=== PATIENT | female | born 1970 | race Caucasian/White ===

== ENCOUNTER → 2018-09-09 09:01 | Outpatient (CLI) | payer OTHER, SELFPAY ==
[2018-07-18 14:48] VITALS: BMI 30.4
--- NOTE | 2018-08-16 00:13 | HP.PCM_ITS ---
History and Physical Date of Admission: 08/16/18 HISTORY OF PRESENT ILLNESS 47 year old woman presents with complaints of painful nipple scar contour deformity bilateral breasts from previous multiple breast abscesses. She states the symptomatology has worsened over the last several months. She had a mammogram in mid 2018 and according to her, it was ok. Will obtain a copy of that. She states it was done in [place]. She denies any fever. She denies any trauma. She denies nipple discharge. Some of her concerns are the asymmetry between the breasts because of the amount of tissue that was debrided at the time of these abscess drainage procedures and the medial inward deformity of her left nipple. She presents at this time for further evaluation and treatment. PAST MEDICAL HISTORY Arthritis Breast lump in female Frequent headaches GERD (gastroesophageal reflux disease) Hormone deficiency Pituitary disorder Rheumatoid arthritis Thyroid disease Tumors PAST SURGICAL HISTORY appendectomy incision and drainage tubal ligation ALLERGIES hydromorphone [From Dilaudid] adhesive tape MEDICATIONS bupropion HCl XL 300 mg 24 hr tablet, extended release 300 mg PO QAM 07/04/18 [History Confirmed 07/04/18] cabergoline 0.5 mg tablet 0.25 mg PO 2XW tab 07/04/18 [History Confirmed 07/04/18] levothyroxine 75 mcg tablet 75 mcg PO DAILY 07/04/18 [History Confirmed 07/04/18] pantoprazole 40 mg tablet,delayed release 40 mg PO DAILY 07/04/18 [History Confirmed 07/04/18] FAMILY HISTORY Mother - Anxiety, Arthritis, Hypertension, Anemia, Bleeding disorder Father - Anxiety, Hypertension, Respiratory disease Brother - Anxiety, Psychiatric care, Suicide attempt Aunt - Breast cancer, Cancer Uncle - Cancer, Heart disease, Lung cancer, Melanoma Grandmother - Colon cancer, Psychiatric care, Thyroid disorder Grandfather - Respiratory disease SOCIAL HISTORY Smoking Status: Current every day smoker alcohol intake: current substance use type: does not use REVIEW OF SYSTEMS General - Denies fever, fatigue, and weight loss. Eyes - Denies cataracts and glaucoma. ENT - Denies nasal congestion and sore throat. Endocrine - Denies excessive thirst and urination. Has family history of breast cancer. Skin - Denies suspicious lesions and skin cancer. Has painful nipple scar contour deformity bilateral breasts from previous multiple breast abscesses. Musculoskeletal - Denies joint pain, joint stiffness, weakness of muscles and joints, and back pain. Has rheumatoid arthritis. Neuro - Denies headaches. Cardiovascular - Denies chest pain, fatigue, and shortness of breath with exertion. Psych - Denies anxiety and depression. Respiratory - Denies chronic cough and shortness of breath. Patient is a smoker. Gastrointestinal - Denies nausea, vomiting, diarrhea, and constipation. Hematologic - Denies abnormal bruising and bleeding. Genitourinary - Denies hematuria and urinary frequency. PHYSICAL EXAMINATION General - Alert and Oriented. Her bra size is a C cup. HEENT - PERRL. EOMI. Throat is clear. Neck - Supple and nontender. No cervical adenopathy. Breasts - No breast masses palpable. Right breast is larger than the left with asymmetry. No axillary adenopathy. On the right lateral nipple is a 4 cm scar contour deformity with some indentation. No ulceration. Some tenderness to palpation. No clinical evidence of infection. On the left medial nipple is a 4 cm scar contour deformity with some indentation and much greater deformity with medial inward deviation of the nipple. There is also a 2 cm widened scar in the medial aspect of the periareolar area adjacent to the nipple scar. No ulceration. Tenderness to palpation. No clinical e vidence of infection. Breast diameter is 14 cm bilaterally. Distance from the midclavicular line on the right to the nipple is 25 cm and from the nipple to the inframammary fold is 6 cm. Distance from the midclavicular line on the left to the nipple is 24 cm and from the nipple to the inframammary fold is 5 cm. Diameter of the nipple areolar complexes bilaterally is 6 cm. There is Stage II ptosis bilaterally where the nipple is located below the inframammary fold. Lungs - Clear to auscultation. Heart - Regular rate and rhythm. Abdomen - Soft and nondistended. Extremities - FROM. No axillary adenopathy. Radial pulses are palpable. Neuro - CN II-XII grossly intact. Psych - Normal mood and affect. ASSESSMENT 1. Painful nipple scar contour deformity bilateral breasts from previous multiple breast abscesses. 2. Left breast asymmetry. 3. Bilateral breast ptosis. 4. Family history of breast cancer. 5. Smoker. PLAN Will review the mammogram from [place] that was done in 2018. Depending on when it was done, another mammogram may be needed before surgery. Recommend surgical preparation of her painful nipple scar contour deformity bilateral breasts with excisional debridement followed by complex secondary wound closure. Will send tissue to Pathology for analysis to rule out carcinoma. Will also send tissue to Microbiology for culture. A positive culture will necessitate antibiotic therapy. I anticipate the need for a drain postoperatively for several days. Surgery will be done on an outpatient basis under general anesthesia. Patient was informed of the risks and complications of the procedure including alternatives to surgery. These were discussed with the patient personally. Patient voices understanding and wishes to proceed. Some of the risks and complications were included in a form from the [employer]. With the patient's degree of breast ptosis and combined with her history of infections that have led to multiple procedures that left her with asymmetry and the nipple deformity, she is a candidate for revision breast reconstruction with a mastopexy. Will send a letter to her insurance carrier for medical approval. If it is not approved, then the patient is aware that she would be financially responsible for this procedure if she decides to pursue the revision breast reconstruction with mastopexy. Encouraged patient to stop smoking as it may have deleterious effects on wound healing.
== END ==
PROVIDERS: Family Provider Family Medicine; PCP Family Medicine; Referring Provider Surgery; Visit Provider Surgery
DX: Z53.9 Procedure and treatment not carried out, unspecified reason (principal); S21.001S Unspecified open wound of right breast, sequela; S21.002S Unspecified open wound of left breast, sequela; X58.XXXS Exposure to other specified factors, sequela; N64.89 Other specified disorders of breast; F17.200 Nicotine dependence, unspecified, uncomplicated; Z87.2 Personal history of diseases of the skin and subcutaneous tissue; Z98.890 Other specified postprocedural states; Z80.3 Family history of malignant neoplasm of breast

== ENCOUNTER 2021-06-28 10:26 | Outpatient (CLI) | payer OTHER, SELFPAY ==
[2021-06-28 11:45] LABS: EXAGEN MAILED SPECIMEN
[2021-06-28 12:35] LABS: Erythrocyte Sedimentation Rate 41 mm/hr (0-30)
[2021-06-28 12:37] LABS: Prothrombin Time (Protime)PT. 12.4 SECONDS (11.7-14.9)
[2021-06-28 12:38] LABS: Absolute Lymphocyte Count 1.74 X10^3/uL (0.83-4.51); Absolute Neutrophil Count 1.5 X10^3/uL (2.0-7.7); Basophil# 0.01 X10^3/uL; Basophil% 0.3 % (0-1); Eosinophil# 0.03 X10^3/uL; Eosinophils% 0.8 % (0-5); Hematocrit 43.6 % (37-47); Hemoglobin 14.8 g/dL (12.0-15.0); Lymphocyte # 1.74 X10^3/ul (0.83-4.51); Lymphocyte % 44.6 % (19-41); Mean Corp Hgb Conc 33.9 g/dL (32-36); Mean Corpuscular Hgb 30.3 pg (27.0-32.0); Mean Corpuscular Volume 89.3 fL (81-99); Mean Platelet Vol. 10.8 fl (6.2-12.0); Monocyte# 0.66 X10^3/uL; Monocyte% 16.9 % (0-10); NRBC Flagged by Analyzer 0 % (0-5); Neutrophil # 1.45 X10^3/uL (2.7-7.7); Neutrophil % 37.1 % (47-70); Partial Thromboplast Time 34.3 Seconds (24.1-36.2); Platelet Count 235 K/mm3 (150-450); RBC Distribution Width SD 42.9 fl (35.1-43.9); Red Blood Count 4.88 M/mm3 (4.2-5.4); White Blood Count 3.9 K/mm3 (4.4-11.0)
[2021-06-28 12:39] LABS: Color, Urine Yellow (Yellow); Glucose, Dipstick Normal (Normal); Ketone-Dipstick Negative (Negative); Leukocyte Esterase-Dipstick Negative /ul (Negative); Nitrite-Dipstick Negative (Negative); Occult Blood-Urine Negative /ul (Negative); Protein-Dipstick Negative (Negative); Urine Bilirubin Dipstick Negative (Negative); Urine Clarity Sl. Cloudy (Clear); Urine Urobilinogen Normal (Normal)
[2021-06-28 12:53] LABS: Protein, Urine (Random) < 6.0 mg/dL (<11.9)
[2021-06-28 12:54] LABS: AST(SGOT) 21 U/L (15-37); Alanine Aminotransfer ALT/SGPT 35 U/L (13-56); Alkaline Phosphatase 110 U/L (45-117); Anion Gap 6 (5-15); BUN 7 mg/dL (7-18); BUN/Creat Ratio 7.9 RATIO (10-20); Calcium,Total 9.5 mg/dL (8.5-10.1); Chloride 107 mmol/L (98-107); Creatinine, Serum 0.88 mg/dL (0.55-1.02); EST Glomerular Filtration Rate 73 mL/min (>60); Est Glom Filt Rate - Afr Amer 88 mL/min (>60); Globulin 4.2 g/dL (2.2-4.2); Glucose 91 mg/dL (74-106); Phosphorus 3.7 mg/dL (2.5-4.9); Potassium 4.1 mmol/L (3.5-5.1); Protein, Total 8.2 g/dL (6.4-8.2); Sodium Level 137 mmol/L (136-145)
== END 2021-06-28 23:59 | disposition home or self-care (01) ==
LOC: MTLAB 10:34
PROVIDERS: PCP Internal Medicine; Referring Provider Internal Medicine Rheumatology; Visit Provider Internal Medicine Rheumatology
DX: M06.4 Inflammatory polyarthropathy (principal); M79.7 Fibromyalgia
CPT/HCPCS: 36415; 80053; 81002; 82570; 84100; 84156; 85025; 85610; 85652; 85730; 86140

== ENCOUNTER → 2023-05-24 | Outpatient (CLI) | payer OTHER, SELFPAY ==
--- OUTSIDE RECORDS SUMMARY | 2023-05-24 11:37 | XMS RPT_ITS | CCD ---
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 Procedures Date Procedure Procedure Detail Performing Clinician Start: 03-08-2022 End: 03-08-2022 Visual field xm uni/bi w/interp extended exam Merlin Basilio MD Work Phone: Start: 11-24-2020 Colonoscopy Roland trotter MD Work Phone: Start: 10-27-2020 Brncdilat rspse spmt ry pre&post-brncdilat admn Darleen Naylor 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 Work Phone: Start: 10-14-2020 Radiologic exam ches t 2 views Darleen Naylor 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 Work Phone: Start: 05-06-2019 MG Breast screening Yoan Russell Start: 01-28-2018 Microscopic observat ion [Identifier] in Cervix by Cyto stain Darleen Naylor Start: 12-11-2017 Mammography Darleen Spring Start: 07-30-2017 Microscopic observat ion [Identifier] in Cervix by Cyto stain Ritesh Osei Start: 07-03-2016 Mammography Merlin carney MD Work Phone: Appendectomy Ritesh sOei Colposcopy Ritesh Osei Dilation and curettage Ritesh Osei Ligation of fallopian tube J ohberlin Osei Plan of Treatment Date Care Activity Detail Author Start: 2037 Pneumococcal Vaccine: Ped or At-Risk (2 of 2 - PPSV23) Pneumococcal Vaccine: Ped or At-Risk (2 of 2 - PPSV23) [facility] Start: 11-24-2030 Screening for malignant neoplasm of colon [facility] Start: 03-14-2024 History and physical examination, annual for health maintenance Wellness Visit [facility] Start: 08-30-2023 End: 08-30-2023 Patient encounter procedure 08/30/2023 10:40 AM EDT Office Visit [facility] [address] [place] [address] Tania Judge MD [address] [address] [facility] Start: 07-13-2023 End: 07-13-2023 Patient encounter procedure 07/13/2023 8:15 AM EDT Office Visit [facility] [place] [address] [place] [id number] Dennis Serrano CNP [address] [place] [address] [facility] [place] Start: 05-21-2023 Administration of herpes zoster vaccine Zoster Vaccines (2 of 2) [facility] Start: 03-26-2023 End: 03-26-2023 Clinical Support 03/26/2023 1:30 PM EST Clinical Support [facility] [address] [place] [address] [facility] Start: 01-21-2023 Tetanus vaccination [facility] Start: 01-21-2023 Urine microalbumin profile DTAP,TDAP,TD (2 - Td or Tdap) [facility] Start: 12-29-2022 COVID-19 Vaccine ( season) COVID-19 Vaccine () [facility] Start: 2022 Administration of herpes zoster vaccine Zoster Vaccines (1 of 2) [facility] Start: 2022 Screening for malignant neoplasm of colon Flexible sigmoidoscopy [facility] Start: 10-06-2022 End: 10-06-2022 Patient encounter procedure 10/06/2022 Office Visit Endocrinology Marge Arndt MD [address] [place] [address] [facility] [place] Start: 09-18-2022 End: 04-08-2023 Prolactin [Mass/volume] in Serum or Plasma Prolactin Lab Routine Hyperprolactinemia (HCC) Expected: 09/18/2022 (Approximate), Expires: 04/08/2023 [facility] Immunizations Immunization Date Immunization Notes Care Provider Fa cility 03-26-2023 Pneumococcal Conjuga te 20-Valent (Prevnar 20) Ginna Doll [facility] 03-26-2023 zoster vaccine recombinant Ginna rodrigues [facility] 03-26-2023 varicella-zoster gE, diluent + powder, (SHINGRIX KIT) 50 mcg/0.5 mL injection Ginna Doll [facility] 03-26-2023 pneumococcal conj. 2 0-valent (PREVNAR 20) 0.5 mL vaccine Ginna [facility] 03-14-2023 influenza, injectabl e, quadrivalent, preservative free Tania Judge MD Work Phone: [facility] 03-14-2023 flu vacc [id number] 6 mos up,PF, (FLUZONE QUAD/FLULAVAL QUAD/FLUARIX QUAD) 60 mcg (15 mcg x 4)/0.5 mL Syrg syringe Tania Judge MD Work Phone: [facility] 01-19-2022 Seasonal, quadrivale nt, recombinant, injectable influenza vaccine, preservative free Tania Judge MD Work Phone: [facility] 01-19-2022 flu vac qv 2021,18yr up,rcm-PF (FLUBLOK QUAD) syringe Tania Judge MD Work Phone: [facility] 03-28-2021 Seasonal, quadrivale nt, recombinant, injectable influenza vaccine, preservative free Tania Judge MD Work Phone: [facility] 03-28-2021 flu vac qv 2020,18yr up,rc,PF, (FLUBLOK QUAD) syringe Tania Judge MD Work Phone: [facility] 01-17-2017 influenza, injectabl e, quadrivalent, preservative free [facility] 08-31-2016 measles, mumps and r ubella virus vaccine [facility] 08-04-2015 pneumococcal polysac charide vaccine, 23 valent [facility] 01-21-2013 influenza virus vacc ine, unspecified formulation [facility] 01-21-2013 tetanus toxoid, redu ernie diphtheria toxoid, and acellular pertussis vaccine, adsorbed [facility] Payers Date Payer Category Payer Unknown [id number] 2018 Unknown xxxxxxxxx [id number] 2017 Private Health Insurance 2017 Unknown [facility] xxxxxxxxxxx 2017-Present [place] xxxxxxxxxxx [id number] 2017 Unknown [facility] UMR RODRIGUEZ CE PLUS [id number] 2017-Present [phone] [address] [address] [place] [address] [id number] 2017 Unknown [id number] 1972 Unknown [id number] 1972 Unknown [id number] 1972 Unknown [id number] 1972 Unknown [id number] 1972 Unknown [id number] 1972 Unknown [id number] 1972 Unknown [id number] 1972 Unknown [id number] 1972 Unknown [id number] 1972 Unknown [id number] 1972 Unknown [id number] Private Health Insurance [id number] Social History Date Type Detail Facility Start: 07-30-2017 End: 01-19-2022 Tobacco smoking status NHIS Current every day smoker [facility] Start: 04-30-1985 History of tobacco use Cigarette Smo ker [facility] Start: 07-30-2017 End: 04-18-2022 Cigarettes smoked current (pack per day) - Reported [facility] Start: 1970 Sex Assigned At Not on file [facility] Start: 10-10-2016 End: 01-19-2022 Tobacco Comment +1 pack a day [facility] Start: 10-10-2016 Alcohol Comment 2-6 glasses a week [facility] Start: 10-14-2020 End: 01-19-2022 Tobacco use and exposure Never used [facility] Start: 10-14-2020 End: 03-14-2023 Alcohol intake Current drinker of alcohol (finding) [facility] Start: 06-17-2021 End: 04-07-2022 Exposure to SARS-CoV-2 (event) Not sure [facility] Start: 11-09-2020 Alcohol Comment 1- 2 galsses a month [facility] Start: 12-28-2020 History SDOH Alcohol Comment occasio nal [facility] Start: 02-14-2022 End: 02-24-2022 Exposure to SARS-CoV-2 (event) Unable to assess [facility] Start: 04-18-2022 End: 03-14-2023 Tobacco use panel [facility] Adult Depression Scr eening Assessment 8 [facility] Start: 02-07-2018 Gender identity Identifies as female gender (finding) [facility] Start: 02-07-2018 Sexual orientation Heterosexual (fin manish) [facility] Medical Equipment Procedure Code Equipment Code Equipment Origin al Text Equipment Identifier Dates Gonzalez [employer]aps[employer] [id number] Start: 11-24-2020 Goals Date Patient Goal Desired Activity /State Personal health goal Functional Status Date Assessment Result Facility NEGATED: Highlighted row Functional performance Functional status health issues are not documented Disease [employer] Work Phone: Mental Status Date Assessment Result Facility NEGATED: Highlighted row Cognitive function [Interpretation] Cognitive status health issues are not documented [facility] [email or web address] Work Phone: Clinical Notes 08-04-2015 to 05-09-2023 Telephone Encounter - Alcira Brantley RN - 05/09/2023 8:33 AM ESTTelephone Encounter - Alcira Brantley RN - 05/09/2023 8:33 AM ESTTelephone Encounter - Alcira Brantley RN - 05/08/2023 2:44 PM EST Note Date & Type Note Facility 05-09-2023 Telephone encounter Note the Shelf MESSAGE SENT TO PT. [facility] 05-09-2023 Miscellaneous Notes the Shelf MESSAGE SENT TO PT. PER PT: predniSONE (DELTASONE) 20 MG tablet 14 tablet 0 03/14/2023 03/21/2023 Sig - Route: Take 2 (two) tablets (40 mg total) by mouth daily for 7 days . - Oral Pt stated pcp will call in prednisone when she has a flare up on her hands. Pt stated she is having a flare up this week and would like it called in, and if unable to refill please call pt back. LAST OV 03/14/23. NEXT OV SCHEDULED FOR 08/30/23. ----- Message from Olesya Arroyo sent at 05/08/2023 2:36 PM EST ----- Regarding: RX refill Contact: Andreina Sesay [phone] MEDICATION REFILL REQUEST: PCP: Tania Judge MD Patient called 05/08/23 and is requesting a medication refill for levothyroxine (SYNTHROID, LEVOTHROID) 75 MCG [id number] [id number]/11/2022 Sig - Route: Take 1 (one) tablet (75 mcg total) by mouth every morning . - Oral predniSONE (DELTASONE) 20 MG [id number] Sig - Route: Take 2 (two) tablets (40 mg total) by mouth daily for 7 days . - Oral Pt stated pcp will call in prednisone when she has a flare up on her hands. Pt stated she is having a flare up this week and would like it called in, and if unable to refill please call pt back. This was confirmed from the current medication list found in the patients chart. Supply Requested: # of days: 90 days Method of receiving: Send to pharmacy Last set of flowsheet rows for OARRS report: OARRS/NARxCHECK Report Received and Assessed: No data found Date controlled substance agreement signed: No data found Date of last drug screen: No data found Functional Assessment: No data found Will this refill be sent to the preferred pharmacy listed below? Yes Preferred pharmacies: [facility] [address] [place] [address] [address] Pt Call Back Number Patient call back message sent to the primary care clinical pool. Olseya Arroyo documented in this encounter [facility] 05-08-2023 Telephone encounter Note PER PT: predniSONE (DELTASONE) 20 MG tablet 14 tablet 0 03/14/2023 03/21/2023 Sig - Route: Take 2 (two) tablets (40 mg total) by mouth daily for 7 days . - Oral Pt stated pcp will call in prednisone when she has a flare up on her hands. Pt stated she is having a flare up this week and would like it called in, and if unable to refill please call pt back. LAST OV 03/14/23. NEXT OV SCHEDULED FOR 08/30/23. [facility] 05-08-2023 Telephone encounter Note ----- Message from Olesya Arroyo sent at 05/08/2023 2:36 PM EST ----- Regarding: RX refill Contact: Andreina Sesay [phone] MEDICATION REFILL REQUEST: PCP: Tania Judge MD Patient called 05/08/23 and is requesting a medication refill for levothyroxine (SYNTHROID, LEVOTHROID) 75 MCG [id number]/11/2022 Sig - Route: Take 1 (one) tablet (75 mcg total) by mouth every morning . - Oral predniSONE (DELTASONE) 20 MG [id number]/ Sig - Route: Take 2 (two) tablets (40 mg total) by mouth daily for 7 days . - Oral Pt stated pcp will call in prednisone when she has a flare up on her hands. Pt stated she is having a flare up this week and would like it called in, and if unable to refill please call pt back. This was confirmed from the current medication list found in the patients chart. Supply Requested: # of days: 90 days Method of receiving: Send to pharmacy Last set of flowsheet rows for OARRS report: OARRS/NARxCHECK Report Received and Assessed: No data found Date controlled substance agreement signed: No data found Date of last drug screen: No data found Functional Assessment: No data found Will this refill be sent to the preferred pharmacy listed below? Yes Preferred pharmacies: [facility] [address] [place] [address] Pt Call Back Number Patient call back message sent to the primary care clinical pool. Olesya Arroyo [facility] 03-26-2023 History of Present illness Narrative Pt here for Prevnar 20 and Pheumonia vaccines. She got a vaccine in each arm. She tolerated them well. Pt reports that she has an appointment with a hand specialist in [place] on 04/03/23. Pt reports that even after finishing course of Prednisone, her hands are still hurting her. documented in this encounter [facility] 03-14-2023 Evaluation + Plan note Associated Problem(s): Hyperlipidemia LDL goal <100 Has familial history of hypercholesterolemia, will repeat blood work and monitor response, open to start on an anticholesterol medication and has been doing really well with lifestyle changes. We will continue to monitor and calculate her ASCVD risk score with the new numbers. [facility] 03-14-2023 Miscellaneous Notes Associated Problem(s): Hyperlipidemia LDL goal <100 Has familial history of hypercholesterolemia, will repeat blood work and monitor response, open to start on an anticholesterol medication and has been doing really well with lifestyle changes. We will continue to monitor and calculate her ASCVD risk score with the new numbers. Associated Problem(s): Seasonal depression (HCC) Stable on the current regimen with Wellbutrin 450 mg for seasonal changes. Continue to monitor and follow-up in 6 months Associated Problem(s): Healthcare maintenance Up to date on flu, given today Qualifies for another pCV20 for smoking, considering along with Shingrix as a nurse visit in the next time Pap smear will talk to 's office to get it scheduled Up-to-date on colon cancer screening. Mammogram ordered today Follow up on COVID booster next visit Nicotine therapy counseling done documented in this encounter [facility] 03-14-2023 Evaluation + Plan note Associated Problem(s): Seasonal depression (HCC) Stable on the current regimen with Wellbutrin 450 mg for seasonal changes. Continue to monitor and follow-up in 6 months [facility] 03-14-2023 Evaluation + Plan note Associated Problem(s): Healthcare maintenance Up to date on flu, given today Qualifies for another pCV20 for smoking, considering along with Shingrix as a nurse visit in the next time Pap smear will talk to 's office to get it scheduled Up-to-date on colon cancer screening. Mammogram ordered today Follow up on COVID booster next visit Nicotine therapy counseling done [facility] 03-14-2023 History of Present illness Narrative Chief Complaint Patient presents with Annual Exam No pap Flu shot HPI: Patient is a 52 y.o. female with a past medical history of GERD, depression, esophagitis, rheumatoid arthritis and thyroid disease. 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 Juarez hypothyroidism: Currently on levothyroxine at 75 mcg. TFTs checked with endocrine and were within normal limits Pituitary adenoma/ prolactinoma: 2012, hyperprolactinemia , sure enough that she had it in her adolescence. Had two miscarriages. Prolactin has been high last time checked. Currently followed by endocrinology and on cabergoline 0.5 mg tab twice weekly increased from once a week by Dr. Arndt. Rheumatoid arthritis: Has been seen by Rheumatology in [place] . was on methotrexate didn't tolerate it with nuasea , fatgue and cold sores. Small joint pains living on tylenol and ibuprofen on a daily basis, tried Mobic in the past with no relief. For years have been struggling with bilateral hand pain and swelling, throbbing, warm and stiff in the morning and at the end of the day sometimes wakes her up at night. Sleeping with braces. EMG done in the past excluded carpal tunnel. 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 Did have relief with prednisone courses in the past, has tried meloxicam and Voltaren with no relief. Nicotine dependence: Current everyday smoker about a pack per day for the past 32 years, also smokes quite about 3 years ago and switched to the Juul vapes. Now at under 1 PPD. Has tried quitting in the past with no success. Does have patches at home which she uses if she goes to a place that she cannot smoke and it would be effective. Not thinking of quitting at this time. Obesity: Has tried the noom program for weight loss and has been trying to lose weight . Has lost and was able to maintain the weight she lost. Gained some of it back and she is going to go back on Noom. Has been losing weight on Noom. 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 Phil Powers EGD N/A 11/24/2020 Procedure: ESOPHAGOGASTRODUODENOSCOPY WITH BIOPSY AND GONZALEZ CHIP PLACEMENT; Surgeon: René High MD; Location: [facility]; Service: General Surgery ESOPHAGEAL MANOMETRY N/A 11/24/2020 Procedure: ESOPHAGEAL MANOMETRY; Surgeon: René High MD; Location: [facility]; Service: General Surgery TUBAL LIGATION Family History Problem Relation Age of Onset Rheum arthritis Mother Hypertension Mother Emphysema Father COPD Father Hypothyroidism Father Cancer Maternal Grandmother colon Thyroid disease Maternal Grandmother Hypertension Maternal Grandfather Heart disease Paternal Grandfather Heart disease Paternal Uncle Social History Tobacco Use Smoking status: Every Day Packs/day: 1.00 Years: 32.00 Additional pack years: 0.00 Total pack years: 32.00 Types: Cigarettes Smokeless tobacco: Never Tobacco comments: +1 pack a day Vaping Use Vaping Use: Never used Substance Use Topics Alcohol use: Yes Comment: occasional Drug use: No Review of Systems Vitals: 03/14/23 1116 BP: 111/76 BP Location: Right arm Patient Position: Sitting BP Cuff Size: Adult Pulse: 79 Resp: 16 Temp: 97.3 F (36.3 C) TempSrc: Temporal SpO2: 94% Weight: 58.1 kg (128 lb) Height: 5' Estimated body mass index is 25 kg/m as calculated from the following: Height as of this encounter: 5'. Weight as of this encounter: 58.1 kg (128 lb). Physical Exam Constitutional: General: She is not in acute distress. Appearance: She is not ill-appearing. HENT: Head: Normocephalic and atraumatic. Eyes: Extraocular Movements: Extraocular movements intact. Conjunctiva/sclera: Conjunctivae normal. Pupils: Pupils are equal, round, and reactive to light. Cardiovascular: Rate and Rhythm: Normal rate and regular rhythm. Pulses: Normal pulses. Heart sounds: Normal heart sounds. No murmur heard. No gallop. Pulmonary: Effort: Pulmonary effort is normal. Breath sounds: No wheezing, rhonchi or rales. Chest: Chest wall: No tenderness. Abdominal: General: Abdomen is flat. Bowel sounds are normal. There is no distension. Palpations: Abdomen is soft. There is no mass. Tenderness: There is no abdominal tenderness. There is no right CVA tenderness, left CVA tenderness, guarding or rebound. Musculoskeletal: General: Tenderness (Along with swelling in left first CMC joint) present. Normal range of motion. Cervical back: Normal range of motion and neck supple. No rigidity. No muscular tenderness. Right lower leg: No edema. Left lower leg: No edema. Lymphadenopathy: Cervical: No cervical adenopathy. Skin: General: Skin is warm. Findings: No erythema or rash. Neurological: General: No focal deficit present. Mental Status: She is alert and oriented to person, place, and time. Sensory: No sensory deficit. Motor: No weakness. Gait: Gait normal. Psychiatric: Mood and Affect: Mood normal. Behavior: Behavior normal. Thought Content: Thought content normal. Judgment: Judgment normal. OARRS/NARxCHECK Report Received and Assessed: No data found Date controlled substance agreement signed: No data found Date of last drug screen: No data found Functional Assessment: No data found PHQ9: MARY-7 Tobacco Counseling: Ready to quit: Not Answered Counseling given: Not Answered Tobacco comments: +1 pack a day Patient's Medications New Prescriptions PREDNISONE (DELTASONE) 20 MG TABLET Take 2 (two) tablets (40 mg total) by mouth daily for 7 days . Previous Medications ALBUTEROL 90 MCG/ACTUATION INHALER Inhale 2 (two) puffs every 4 (four) hours as needed for wheezing, shortness of breath or cough . BUPROPION (WELLBUTRIN XL) 300 MG 24 HR TABLET Take 1 (one) tablet (300 mg total) by mouth daily Take with 150 mg tablet to total 450 mg daily. . CABERGOLINE (DOSTINEX) 0.5 MG TABLET Take 1 (one) tablet (0.5 mg total) by mouth twice weekly . FLU VACC [id number] 6MOS UP,PF, (FLUZONE QUAD/FLULAVAL QUAD/FLUARIX QUAD) 60 MCG (15 MCG X 4)/0.5 ML SYRG SYRINGE Sign this order in conjunction with the immunization order to satisfy [place] Board of [employer]acy Positive ID requirements for immunization orders. . LEVOTHYROXINE (SYNTHROID, LEVOTHROID) 75 MCG TABLET Take 1 (one) tablet (75 mcg total) by mouth every morning . Modified Medications Modified Medication Previous Medication BUPROPION (WELLBUTRIN XL) 150 MG 24 HR TABLET buPROPion (Wellbutrin XL) 150 MG 24 hr tablet Take 1 (one) tablet (150 mg total) by mouth daily Total 450 mg . Take 1 (one) tablet (150 mg total) by mouth daily Total 450 mg . Discontinued Medications DICLOFENAC SODIUM (VOLTAREN) 75 MG EC TABLET Take 1 (one) tablet (75 mg total) by mouth 2 (two) times a day with meals . FLU VAC QV 2020,18YR UP,RC,PF, (FLUBLOK QUAD) SYRINGE Sign this order in conjunction with the immunization order to satisfy [place] Board of Pharmacy Positive ID requirements for immunization orders. . FLU VAC QV 2021,18YR UP,RCM-PF (FLUBLOK QUAD) SYRINGE Sign this order in conjunction with the immunization order to satisfy [place] Board of Pharmacy Positive ID requirements for immunization orders. . Health Maintenance Due Topic Date Due Low-dose CT Lung Cancer Screen Never done Wellness Visit Never done HIV Screening Never done Pneumococcal Vaccine: Ped or At-Risk (2 - PCV) 08/03/2016 Mammogram 12/11/2018 Pap Smear 01/28/2021 Zoster Vaccines (1 of 2) Never done COVID-19 Vaccine (4 - 2022- season) 2022 Tetanus: Every 10yrs 01/21/2023 Assessment & Plan Problem List Items Addressed This Visit Other Seasonal depression (HCC) Stable on the current regimen with Wellbutrin 450 mg for seasonal changes. Continue to monitor and follow-up in 6 months Relevant Medications buPROPion (Wellbutrin XL) 150 MG 24 hr tablet Hyperlipidemia LDL goal <100 Has familial history of hypercholesterolemia, will repeat blood work and monitor response, open to start on an anticholesterol medication and has been doing really well with lifestyle changes. We will continue to monitor and calculate her ASCVD risk score with the new numbers. Healthcare maintenance Up to date on flu, given today Qualifies for another pCV20 for smoking, considering along with Shingrix as a nurse visit in the next time Pap smear will talk to 's office to get it scheduled Up-to-date on colon cancer screening. Mammogram ordered today Follow up on COVID booster next visit Nicotine therapy counseling done Other Visit Diagnoses Encounter for immunization - Primary Relevant Medications flu vacc [id number] 6mos up,PF, (FLUZONE QUAD/FLULAVAL QUAD/FLUARIX QUAD) 60 mcg (15 mcg x 4)/0.5 mL Syrg syringe Other Relevant Orders Influenza IIV4 6mo or >,Fluzone Quad (Completed) Arthritis of carpometacarpal (CMC) joint of left thumb Relevant Medications predniSONE (DELTASONE) 20 MG tablet Other Relevant Orders Ambulatory referral to Hand Surgery Encounter for screening for malignant neoplasm of breast, unspecified screening modality Relevant Orders CT Lung Cancer Screening Screening for malignant neoplasm of respiratory organ Relevant Orders Mammography Screening Tito Bilateral Hyperlipidemia, unspecified hyperlipidemia type Relevant Orders Lipid Panel Lipoprotein A (LPA) Return in about 6 months (around 09/12/2023) for Follow Up, nurse visit for PCV20 and shingrix . TANIA JUDGE MD [facility] [address] [facility] [address] Dept: [phone] 04/18/2022 8:14 AM Depression Screening Little interest or pleasure in doing things 1 Feeling down, depressed, or hopeless 1 PHQ-2 Total Score 2 Trouble falling or staying asleep, or sleeping too much 1 Feeling tired or having little energy 1 Poor appetite or overeating 1 Feeling bad about yourself - or that you are a failure or have let yourself or your family down 1 Trouble concentrating on things, such as reading the newspaper or watching television 2 Moving or speaking so slowly that other people could have noticed. Or the opposite - being so fidgety or restless that you have been moving around a lot more than usual 0 Thoughts that you would be better off , or of hurting yourself in some way 0 PHQ-9 Total Score 8 If you checked off any problems, how difficult have these problems made it for you to do your work, take care of things at home, or get along with other people? Somewhat difficult documented in this encounter [facility] 04-07-2022 History of Present illness Narrative Images from the original note were not included. Patient ID: Andreina Sesay is a 51 y.o. female Subjective: Patient is a 50-year-old female returns for further treatment of prolactinoma. She states that she was diagnosed with her prolactinoma in 2012. She states that she developed an abscess in her left breast in 2011; had surgical removal of the abscess. She developed a second abscess in her right breast in 2012 and at that time had an evaluation of her hormone levels. Her prolactin level was elevated in the 400 range. She was started on cabergoline at that time and has continued to take cabergoline 0.25 mg twice weekly. At the time of diagnosis, she did have intermittent galactorrhea which she actually has noted since her teenage years. She had no change in her menstrual periods at that time. She has had 1 child in 2000; delivered by , complicated by hyperemesis gravidarum. Currently her menstrual periods are irregular, and she is having hot flashes at night. Recent prolactin level is not available. 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 She is on levothyroxine 75 mcg daily. Recently she was hospitalized for babesiosis. She states that she developed fever, nausea, vomiting, diarrhea, and severe headache. She was admitted to [facility], and then transferred to [facility]. She was diagnosed with babesiosis and CMV infection. She was treated with multiple antibiotics. Following her discharge she continued to have nausea and vomiting, even with Zofran. She is did stop her antibiotic therapy. For the past few days she has been able to keep her food down. Recent prolactin level is not available. 10/05/21 Interim notes: Overall has been feeling better. She has started the Noom program for weight loss, and has lost 24 pounds. 04/07/2022 Interim notes: She reports that she has been feeling fairly well. Has no specific complaints today. She did regain 6 pounds since her last appointment; she stopped the Noom program, but has restarted it. Did not have the opportunity to have her labs done before appointment, and they were done after appointment. Review of Systems: Review of Systems Constitutional: Positive for unexpected weight change (decreased 24 pounds with Noom program). Negative for appetite change and fatigue. HENT: Negative for trouble swallowing and voice change. Eyes: Negative for visual disturbance. Respiratory: Negative for shortness of breath. Cardiovascular: Negative for chest pain and palpitations. Gastrointestinal: Negative for constipation, diarrhea, nausea and vomiting. Endocrine: Negative for cold intolerance and heat intolerance. Musculoskeletal: Negative for neck pain. Neurological: Negative for tremors and headaches. Psychiatric/Behavioral: Positive for sleep disturbance. The following portions of the patient's history were reviewed and updated as appropriate: allergies, current medications, past family history, past medical history, past social history, past surgical history and problem list. No Known Allergies Current Outpatient Medications Medication Sig Dispense Refill albuterol 90 mcg/actuation inhaler Inhale 2 (two) puffs every 4 (four) hours as needed for wheezing, shortness of breath or cough . 6.7 g 0 buPROPion (WELLBUTRIN XL) 300 MG 24 hr tablet Take 1 (one) tablet (300 mg total) by mouth daily . 90 tablet 3 cabergoline (DOSTINEX) 0.5 mg tablet Take 0.5 (one-half) tablet (0.25 mg total) by mouth twice weekly Start: 06/09/22. 4 tablet 12 levothyroxine (SYNTHROID, LEVOTHROID) 75 MCG tablet Take 1 (one) tablet (75 mcg total) by mouth every morning . 30 tablet 11 flu vac qv 2020,18yr up,rc,PF, (FLUBLOK QUAD) syringe Sign this order in conjunction with the immunization order to satisfy [facility] Positive ID requirements for immunization orders. . 0.5 mL 0 flu vac qv 2021,18yr up,rcm-PF (FLUBLOK QUAD) syringe Sign this order in conjunction with the immunization order to satisfy [facility] Positive ID requirements for immunization orders. . 0.5 mL 0 No current facility-administered medications for this visit. 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 Phil Powers EGD N/A 11/24/2020 Procedure: ESOPHAGOGASTRODUODENOSCOPY WITH BIOPSY AND GONZALEZ CHIP PLACEMENT; Surgeon: René High MD; Location: [facility]; Service: General Surgery ESOPHAGEAL MANOMETRY N/A 11/24/2020 Procedure: ESOPHAGEAL MANOMETRY; Surgeon: René High MD; Location: [facility]; Service: General Surgery TUBAL LIGATION Family History Problem Relation Age of Onset Rheum arthritis Mother Hypertension Mother Emphysema Father COPD Father Hypothyroidism Father Cancer Maternal Grandmother colon Thyroid disease Maternal Grandmother Hypertension Maternal Grandfather Heart disease Paternal Grandfather Heart disease Paternal Uncle DISTRICT COURT JUDGE: [id number]; 2001, hyperemesis gravidarum Social History Socioeconomic History Marital status: Occupational History 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 Heats home with gas and has city water. Sleeps with 2-3 pillows. Objective: BP 125/84 Pulse 77 Wt 61 kg (134 lb 8 oz) BMI 26.27 kg/m Wt Readings from Last 3 Encounters: 04/07/22 61 kg (134 lb 8 oz) 01/19/22 56.7 kg (125 lb) 10/05/21 58.1 kg (128 lb) Physical Exam: Physical Exam Constitutional: Appearance: She is well-developed. HENT: Head: Normocephalic. Neck: Thyroid: No thyromegaly. Cardiovascular: Rate and Rhythm: Normal rate and regular rhythm. Heart sounds: Normal heart sounds. Pulmonary: Effort: Pulmonary effort is normal. Breath sounds: Normal breath sounds. Skin: General: Skin is warm and dry. Neurological: Mental Status: She is alert and oriented to person, place, and time. Lab review: 04/07/2022 TSH 2.10, FT4--1.1, prolactin 50.6 (done after appt) 06/28/2021 sodium 137, potassium 4.1, creatinine 0.88, estimated GFR 73, BG 91, AST 21, ALT 35 WBC 3.9, hemoglobin 14.8, hematocrit 43.6, platelet count 235,000 04/26/2021 TSH 0.30, FT4--1.3, prolactin 1.8 Sodium 140, potassium 4.5, creatinine 0.73, estimated GFR 98 WBC 3.98, hemoglobin 14.1, hematocrit 42.3, platelet count 258,000 03/05/2021 TSH 7.93, FT4--0.85 10/14/2020 TSH 3.27, prolactin 72.3 03/30/21 US THYROID ONLY COMPARISON: None. FINDINGS: Thyroid gland is normal in size and predominantly homogeneous in echotexture. Overall vascularity is normal. Right thyroid lobe measures 4.0 x 1.9 x 1.6 cm (6.3 mL). Isthmus measures 0.5 cm in AP dimension. Left thyroid lobe measures 3.7 x 1.4 x 1.3 cm (3.4 mL). Left inferior thyroid hyperechoic solid lesion measures 0.4 x 0.3 x 0.2 cm. Findings may represent a small nodule or macrocalcification. IMPRESSION: Normal-size thyroid gland with predominant homogeneous echotexture. Sub 5 mm nodule/macrocalcification of the left inferior thyroid lobe. Favored to be benign given size and sonographic appearance. 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 Thyroid ultrasound reveals normal size thyroid, sub 5 mm nodule/macrocalcification of the left inferior thyroid lobe. Prolactin increased to 50.6, and TFTs are within target range on labs done after appointment. MRI brain 03/04/21 does not show abnormal pituitary, although pituitary focus not performed. Plan: 1. Increase cabergoline to 0.5 mg twice weekly and continue levothyroxine 75 mcg/day. 2. Follow up in 6 months with repeat lab testing before appointment. Return in about 6 months (around 10/06/2022). Electronically signed by Marge Arndt MD 04/07/22 documented in this encounter [facility] 03-08-2022 Note HNO ID: [id number] Author: Merlin Basilio MD Service: ? Author Type: Physician Type: Progress Notes Filed: 03/08/2022 9:33 AM Note Text: ASSESSMENT/PLAN: 1. Pituitary adenoma (HCC) - ICD9: 227.3, ICD10: D35.2 (primary diagnosis) - normal fundus examination. -patient to have consultation with Dr. Jurgen Ardon in [place]. -patient to see Dr. Baez in 2 weeks. Return in 1 year for Dilated fundus exam 2. Anxiety disorder, unspecified type - ICD9: 300.00, ICD10: F41.9 3. Hypothyroidism, unspecified type - ICD9: 244.9, ICD10: E03.9 -continue care with PCP I have confirmed and edited as necessary the relevant ophthalmic history, review of systems, surgical history, and ophthalmological examination findings as obtained by the ophthalmic technical staff. I have seen and examined Andreina Sesay. I have discussed the examination findings, diagnosis, and treatment options with Andreina Sesay and/or her family. I have also reviewed and agree with the assessment and plan as stated above and agree with all its relevant components. I gave the patient the opportunity to ask questions about the findings, diagnosis, and treatment options. Merlin Basilio MD [facility] 03-08-2022 History of Present illness Narrative ASSESSMENT/PLAN: 1. Pituitary adenoma (HCC) - ICD9: 227.3, ICD10: D35.2 (primary diagnosis) - normal fundus examination. -patient to have consultation with Dr. Jurgen Ardon in [place]. -patient to see Dr. Baez in 2 weeks. Return in 1 year for Dilated fundus exam 2. Anxiety disorder, unspecified type - ICD9: 300.00, ICD10: F41.9 3. Hypothyroidism, unspecified type - ICD9: 244.9, ICD10: E03.9 -continue care with PCP I have confirmed and edited as necessary the relevant ophthalmic history, review of systems, surgical history, and ophthalmological examination findings as obtained by the ophthalmic technical staff. I have seen and examined Andreina Sesay. I have discussed the examination findings, diagnosis, and treatment options with Andreina Sesay and/or her family. I have also reviewed and agree with the assessment and plan as stated above and agree with all its relevant components. I gave the patient the opportunity to ask questions about the findings, diagnosis, and treatment options. Merlin Basilio MD documented in this encounter [facility] 03-08-2022 Instructions Merlin Basilio MD - 03/08/2022 9:21 AM EST Patient to see Dr. Jurgen Ardon for consultation of pituitary adenoma. See Dr. Baez in 2 months for follow up exam. If you have any questions please contact our office at [phone]. After office hours or on the weekend, please call Dr. Basilio on his cell phone at [phone]. documented in this encounter [facility] 02-24-2022 Evaluation + Plan note Associated Problem(s): Acute bacterial sinusitis Most likely superimposed bacterial infection on top of COVID infection. Plan: -Tylenol prn for pain/fever -Saline nasal rinses BID or rosetta pod -Antihistamine Claritin to help with congestion -Flonase daily -Honey 3 times daily. -Use mucinex for mucous thinning as needed -Hydration, air humidifier and rest promoted. -Starting Augmentin twice a day for 5 days with meals. [facility] 02-24-2022 Miscellaneous Notes Associated Problem(s): Acute bacterial sinusitis Most likely superimposed bacterial infection on top of COVID infection. Plan: -Tylenol prn for pain/fever -Saline nasal rinses BID or rosetta pod -Antihistamine Claritin to help with congestion -Flonase daily -Honey 3 times daily. -Use mucinex for mucous thinning as needed -Hydration, air humidifier and rest promoted. -Starting Augmentin twice a day for 5 days with meals. documented in this encounter [facility] 02-24-2022 History of Present illness Narrative Telephone Visit Via Phone Call [facility] [address] [facility] [address] [facility] [id number] Telephone Visit [facility] 02/24/2022 Tania Judge MD Provider Location: [address] [place] [address] Patient Location Fish Bailer: None Patient Location: Patient's Home Patient: Andreina Sesay Date of : 1970 (51 y.o. female) PCP: Tania Judge MD I discussed risks, benefits and alternatives of a telephone visit telemedicine consultation with the patient (and any accompanying persons) including the risks that the patient's personal health details and medical records will be discussed over real-time, synchronous, interactive audio technology, the visit will not be recorded without the express consent of both the provider and the patient, and that there are inherent diagnostic limitations compared to [id number] evaluations. We elected to proceed with the telephone visit telemedicine consultation. HPI Joseph Macdonald is 51-year-old lady presenting today for upper respiratory symptoms and recent COVID infection. Positive for COVID last Sunday / days ago. Coughing , sore throat, fever resolved. Fatigue and bony aches, confused and feels like head is in the clouds as well as headaches, feels like sinus headaches above her eye. Denies any Sob or wheezing. Tylenol and ibuprofen as well as claritin with minimal relief The following portions of the patient's history were reviewed and updated as appropriate: allergies, current medications, past family history, past medical history, past social history, past surgical history, and problem list. Review of Systems Patient's Medications New Prescriptions No medications on file Previous Medications ALBUTEROL 90 MCG/ACTUATION INHALER Inhale 2 (two) puffs every 4 (four) hours as needed for wheezing, shortness of breath or cough . BUPROPION (WELLBUTRIN XL) 300 MG 24 HR TABLET Take 1 (one) tablet (300 mg total) by mouth daily . CABERGOLINE (DOSTINEX) 0.5 MG TABLET Take 0.5 (one-half) tablet (0.25 mg total) by mouth twice weekly Start: 10/06/21. DICLOFENAC SODIUM (VOLTAREN) 1 % GEL Apply 4 (four) g topically 4 (four) times a day . FLU VAC QV 2020,18YR UP,RC,PF, (FLUBLOK QUAD) SYRINGE Sign this order in conjunction with the immunization order to satisfy [facility] Positive ID requirements for immunization orders. . FLU VAC QV 2021,18YR UP,RCM-PF (FLUBLOK QUAD) SYRINGE Sign this order in conjunction with the immunization order to satisfy [facility] Positive ID requirements for immunization orders. . LEVOTHYROXINE (SYNTHROID, LEVOTHROID) 75 MCG TABLET Take 1 (one) tablet (75 mcg total) by mouth every morning . PANTOPRAZOLE (PROTONIX) 20 MG TABLET Take 1 (one) tablet (20 mg total) by mouth daily . PROMETHAZINE (PHENERGAN) 25 MG TABLET Take 1 (one) tablet (25 mg total) by mouth every 6 (six) hours as needed for nausea . VALACYCLOVIR (VALTREX) 1000 MG TABLET Take 2 (two) tablets (2,000 mg total) by mouth 2 (two) times a day For one day . Modified Medications No medications on file Discontinued Medications No medications on file Assessment/Plan: Problem List Items Addressed This Visit Respiratory Acute bacterial sinusitis Most likely superimposed bacterial infection on top of COVID infection. Plan: -Tylenol prn for pain/fever -Saline nasal rinses BID or rosetta pod -Antihistamine Claritin to help with congestion -Flonase daily -Honey 3 times daily. -Use mucinex for mucous thinning as needed -Hydration, air humidifier and rest promoted. -Starting Augmentin twice a day for 5 days with meals. Relevant Medications amoxicillin-clavulanate (AUGMENTIN) 875-125 mg per tablet Patient does not qualify for Paxlovid as she is 10 days out of her symptoms. I have spent 15 minutes with the patient reviewing the HPI and Plan of Care. TANIA JUDGE MD Family Medicine Physician [place] [phone] documented in this encounter [facility] 01-20-2022 Evaluation + Plan note Associated Problem(s): Anxiety and depression PHQ9 score 0 and GAD7 score 2 Stable on wellbutrin 300 mg [facility] 01-20-2022 Miscellaneous Notes Associated Problem(s): Anxiety and depression PHQ9 score 0 and GAD7 score 2 Stable on wellbutrin 300 mg Associated Problem(s): Rheumatoid arthritis (HCC) Lost to follow up by rheumatology , previous hx of intolerance to methotrexate , responding to prednisone in the past. Given the current worsening in arthralgia , would benefit from further evaluation with repeating inflammation markers, imaging to check for any degenerative changes related to RA and going back to see her septic technician. Given decreased functioning, discussed short course of Tramadol for breakthrough pain. Associated Problem(s): Hyperprolactinemia (HCC) Diagnosed in 2011, hyperprolactinemia. Currently followed by endocrinology and on cabergoline 0.5 mg tab twice weekly documented in this encounter [facility] 01-20-2022 Evaluation + Plan note Associated Problem(s): Rheumatoid arthritis (HCC) Lost to follow up by rheumatology , previous hx of intolerance to methotrexate , responding to prednisone in the past. Given the current worsening in arthralgia , would benefit from further evaluation with repeating inflammation markers, imaging to check for any degenerative changes related to RA and going back to see her septic technician. Given decreased functioning, discussed short course of Tramadol for breakthrough pain. [facility] 01-20-2022 Evaluation + Plan note Associated Problem(s): Hyperprolactinemia (HCC) Diagnosed in 2011, hyperprolactinemia. Currently followed by endocrinology and on cabergoline 0.5 mg tab twice weekly [facility] 01-19-2022 Instructions Tania Judge MD - 01/19/2022 9:41 AM EDT Problem List Items Addressed This Visit Musculoskeletal and Integument De Quervain's tenosynovitis, left Rheumatoid arthritis (HCC) - Primary Relevant Medications predniSONE (DELTASONE) 5 MG tablet diclofenac sodium (VOLTAREN) 75 MG EC tablet diclofenac sodium (Voltaren) 1 % Gel traMADoL (ULTRAM) 50 mg tablet Other Relevant Orders XR Hand Right 3+ Views (Standard) XR Hand Left 3+ Views (Standard) CBC and Differential Sedimentation Rate CRP, Inflammation Comprehensive Metabolic Panel Other Anxiety and depression Relevant Medications buPROPion (WELLBUTRIN XL) 300 MG 24 hr tablet Hyperlipidemia LDL goal <100 Relevant Orders Lipid Panel Other Visit Diagnoses Encounter for immunization Relevant Medications flu vac qv 2021,18yr up,rcm-PF (FLUBLOK QUAD) syringe Other Relevant Orders Influenza vaccine IIV4 18 yo or >,Flublok Quad Encounter for screening for malignant neoplasm of breast, unspecified screening modality Relevant Orders Mammography Screening Tito Bilateral If any referrals were placed at the time of your visit please allow 2 weeks for processing. If you haven't heard from anyone within 2 weeks please contact my office so we can look into the status of your referral. If you were given any labs today please ensure they are completed according to the directions given. Once labs are completed please allow 1-2 weeks for us to receive the results, review them, and let you know what steps, if any, are needed next. If you haven't heard from us after that please call to inquire. If labs were ordered to be done PRIOR to your next visit we will discuss the results at the time of your office visit. If any procedures or imaging studies were ordered that must be prior authorized please give us 2 weeks to get them approved. Once approved someone should call you to schedule them or give you a date and time that they were scheduled for. If you haven't heard anything within 2 weeks of the office visit please call the office so we can look into their status. Customer Service/Billing Questions: [phone] [facility] Assistance: [phone] or [phone] Financial Assistance: [phone] or [phone] As of May 05, 2019 my schedule will be changing: Sunday 7 am to 5 pm Sunday 7 am to 5 pm Sunday closed 7 am to 5 pm Sunday 7 am to 1 pm documented in this encounter [facility] 01-19-2022 History of Present illness Narrative Chief Complaint Patient presents with Follow-up Former spring pt-Pain in both hands (has RA)Flu Shot, Prevnar? HPI: Patient is a 51 y.o. female with a past medical history of GERD, depression, esophagitis, rheumatoid arthritis and thyroid disease. Presented a month ago with fever , headache and neck pain that was excruciating. Presented to the ER on 02/17, diagnosed with bronchitis was put on antibiotic , prednisone which tremendously helped Relapsed after course was done , went to the ER in , ruled out meningitis was initially on IV vancomycin, ampicillin, ceftriaxone and acyclovir empirically, stopped after unremarkable LP CSF findings. ID and rheumatology were consulted with concerns for tickborne disease including Lyme, Rickettsia, Anaplasma. Was transferred to the main campus for further evaluation. Ruled out Stills disease, persistent suspicion of tick borne disease and was discharged on doxycycline for 3 weeks total to finish on 03/27. 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 Reports that she finished doxycycline 2 days ago. Has not been able to keep anything down, still intolerant of p.o. tests otherwise came back negative from . Juarez hypothyroidism: Currently on levothyroxine at 75 mcg. Pituitary adenoma/ prolactinoma: 2011, hyperprolactinemia , sure enough that she had it in her adolescence. Had two miscarriages. Currently followed by endocrinology and on cabergoline 0.5 mg tab twice weekly. Rheumatoid arthritis: Has been seen by Rheumatology in [place] . was on methotrexate didn't tolerate it with nuasea , fatgue and cold sores. Small joint pains living on tylenol and ibuprofen on a daily basis, tried Mobic in the past with no relief. For years have been struggling with bilateral hand pain and swelling, throbbing, warm and stiff in the morning and at the end of the day sometimes wakes her up at night. Sleeping with braces. EMG done in the past excluded carpal tunnel. Nicotine dependence: Current everyday smoker about a pack per day for the past 32 years, also smokes quite about 3 years ago and switched to the Juul vapes. Now at 0.5 PPD from 1 PPD. Has tried quitting in the past with no success and in her last hospital admission did not feel like smoking but as soon as she was discharged got back to smoking. Obesity: Has tried the noom program for weight loss and has been trying to lose weight . 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 Phil Powers EGD N/A 11/24/2020 Procedure: ESOPHAGOGASTRODUODENOSCOPY WITH BIOPSY AND GONZALEZ CHIP PLACEMENT; Surgeon: René High MD; Location: [facility]; Service: General Surgery ESOPHAGEAL MANOMETRY N/A 11/24/2020 Procedure: ESOPHAGEAL MANOMETRY; Surgeon: René High MD; Location: [facility]; Service: General Surgery TUBAL LIGATION Family History Problem Relation Age of Onset Rheum arthritis Mother Hypertension Mother Emphysema Father COPD Father Hypothyroidism Father Cancer Maternal Grandmother colon Thyroid disease Maternal Grandmother Hypertension Maternal Grandfather Heart disease Paternal Grandfather Heart disease Paternal Uncle Social History Tobacco Use Smoking status: Every Day Packs/day: 1.00 Years: 32.00 Pack years: 32.00 Types: Cigarettes Smokeless tobacco: Never Tobacco comments: +1 pack a day Vaping Use Vaping Use: Never used Substance Use Topics Alcohol use: Yes Comment: occasional Drug use: No Review of Systems Vitals: 01/19/22 0901 BP: 126/80 BP Location: Right arm Patient Position: Sitting BP Cuff Size: Adult Pulse: 87 Resp: 18 Temp: 97.9 F (36.6 C) TempSrc: Temporal SpO2: 94% Weight: 56.7 kg (125 lb) Height: 5' Estimated body mass index is 24.41 kg/m as calculated from the following: Height as of this encounter: 5'. Weight as of this encounter: 56.7 kg (125 lb). Physical Exam Constitutional: General: She is not in acute distress. Appearance: She is not ill-appearing. HENT: Head: Normocephalic and atraumatic. Eyes: Extraocular Movements: Extraocular movements intact. Conjunctiva/sclera: Conjunctivae normal. Pupils: Pupils are equal, round, and reactive to light. Cardiovascular: Rate and Rhythm: Normal rate and regular rhythm. Pulses: Normal pulses. Heart sounds: Normal heart sounds. No murmur heard. No gallop. Pulmonary: Effort: Pulmonary effort is normal. Breath sounds: Rhonchi (Bibasilar, predominantly left-sided) present. No wheezing or rales. Chest: Chest wall: No tenderness. Abdominal: General: Abdomen is flat. Bowel sounds are normal. There is no distension. Palpations: Abdomen is soft. There is no mass. Tenderness: There is no abdominal tenderness. There is no right CVA tenderness, left CVA tenderness, guarding or rebound. Musculoskeletal: General: No tenderness. Normal range of motion. Cervical back: Normal range of motion and neck supple. No rigidity. No muscular tenderness. Right lower leg: No edema. Left lower leg: No edema. Lymphadenopathy: Cervical: No cervical adenopathy. Skin: General: Skin is warm. Findings: No erythema or rash. Neurological: General: No focal deficit present. Mental Status: She is alert and oriented to person, place, and time. Sensory: No sensory deficit. Motor: No weakness. Gait: Gait normal. Psychiatric: Mood and Affect: Mood normal. Behavior: Behavior normal. Thought Content: Thought content normal. Judgment: Judgment normal. OARRS/NARxCHECK Report Received and Assessed: No data found Date controlled substance agreement signed: No data found Date of last drug screen: No data found Functional Assessment: No data found PHQ9: MARY-7 Tobacco Counseling: Ready to quit: Not Answered Counseling given: Not Answered Tobacco comments: +1 pack a day Patient's Medications New Prescriptions DICLOFENAC SODIUM (VOLTAREN) 1 % GEL Apply 4 (four) g topically 4 (four) times a day . DICLOFENAC SODIUM (VOLTAREN) 75 MG EC TABLET Take 1 (one) tablet (75 mg total) by mouth 2 (two) times a day with meals . PREDNISONE (DELTASONE) 5 MG TABLET Take 8 (eight) tablets (40 mg total) by mouth daily for 3 days, THEN 6 (six) tablets (30 mg total) daily for 3 days, THEN 4 (four) tablets (20 mg total) daily for 3 days, THEN 2 (two) tablets (10 mg total) daily for 3 days, THEN 1 (one) tablet (5 mg total) daily for 3 days. TRAMADOL (ULTRAM) 50 MG TABLET Take 1 (one) tablet (50 mg total) by mouth daily for 10 days . Previous Medications ALBUTEROL 90 MCG/ACTUATION INHALER Inhale 2 (two) puffs every 4 (four) hours as needed for wheezing, shortness of breath or cough . CABERGOLINE (DOSTINEX) 0.5 MG TABLET Take 0.5 (one-half) tablet (0.25 mg total) by mouth twice weekly Start: 10/06/21. FLU VAC QV 2020,18YR UP,RC,PF, (FLUBLOK QUAD) SYRINGE Sign this order in conjunction with the immunization order to satisfy [place] [employer] Positive ID requirements for immunization orders. . FLU VAC QV 2021,18YR UP,RCM-PF (FLUBLOK QUAD) SYRINGE Sign this order in conjunction with the immunization order to satisfy [place] [employer] Positive ID requirements for immunization orders. . LEVOTHYROXINE (SYNTHROID, LEVOTHROID) 75 MCG TABLET Take 1 (one) tablet (75 mcg total) by mouth every morning . PANTOPRAZOLE (PROTONIX) 20 MG TABLET Take 1 (one) tablet (20 mg total) by mouth daily . PROMETHAZINE (PHENERGAN) 25 MG TABLET Take 1 (one) tablet (25 mg total) by mouth every 6 (six) hours as needed for nausea . VALACYCLOVIR (VALTREX) 1000 MG TABLET Take 2 (two) tablets (2,000 mg total) by mouth 2 (two) times a day For one day . Modified Medications Modified Medication Previous Medication BUPROPION (WELLBUTRIN XL) 300 MG 24 HR TABLET buPROPion (WELLBUTRIN XL) 300 MG 24 hr tablet Take 1 (one) tablet (300 mg total) by mouth daily . Take 1 (one) tablet (300 mg total) by mouth daily . Discontinued Medications No medications on file Health Maintenance Due Topic Date Due Wellness Visit Never done HIV Screening Never done Pneumococcal Vaccine: Ped or At-Risk (2 - PCV) 08/03/2016 Mammogram 12/11/2018 Pap Smear 01/28/2021 COVID-19 Vaccine (4 - Booster for Moderna series) 06/09/2021 Assessment & Plan Problem List Items Addressed This Visit Endocrine Hyperprolactinemia (HCC) Diagnosed in 2011, hyperprolactinemia. Currently followed by endocrinology and on cabergoline 0.5 mg tab twice weekly Musculoskeletal and Integument De Quervain's tenosynovitis, left Rheumatoid arthritis (HCC) - Primary Lost to follow up by rheumatology , previous hx of intolerance to methotrexate , responding to prednisone in the past. Given the current worsening in arthralgia , would benefit from further evaluation with repeating inflammation markers, imaging to check for any degenerative changes related to RA and going back to see her septic technician. Given decreased functioning, discussed short course of Tramadol for breakthrough pain. Relevant Medications predniSONE (DELTASONE) 5 MG tablet diclofenac sodium (VOLTAREN) 75 MG EC tablet diclofenac sodium (Voltaren) 1 % Gel traMADoL (ULTRAM) 50 mg tablet Other Relevant Orders XR Hand Right 3+ Views (Standard) XR Hand Left 3+ Views (Standard) CBC and Differential (Completed) Sedimentation Rate (Completed) CRP, Inflammation (Completed) Comprehensive Metabolic Panel (Completed) Other Anxiety and depression PHQ9 score 0 and GAD7 score 2 Stable on wellbutrin 300 mg Relevant Medications buPROPion (WELLBUTRIN XL) 300 MG 24 hr tablet Hyperlipidemia LDL goal <100 Relevant Orders Lipid Panel (Completed) Other Visit Diagnoses Encounter for immunization Relevant Medications flu vac qv 2021,18yr up,rcm-PF (FLUBLOK QUAD) syringe Other Relevant Orders Influenza vaccine IIV4 18 yo or >,Flublok Quad (Completed) Encounter for screening for malignant neoplasm of breast, unspecified screening modality Relevant Orders Mammography Screening Tito Bilateral Return in about 6 months (around 07/19/2022). TANIA JUDGE MD [facility] [address] [facility] [address] [facility] [id number] Dept: [phone] documented in this encounter [facility] 10-19-2021 Telephone encounter Note Called and spoke with pt. Informed her of refill and need for 3 month f/u. Pt wishes to establish care with . OV scheduled 01/19/22 at 9:00am. [facility] 10-19-2021 Miscellaneous Notes Called and spoke with pt. Informed her of refill and need for 3 month f/u. Pt wishes to establish care with . OV scheduled 01/19/22 at 9:00am. documented in this encounter [facility] 10-05-2021 History of Present illness Narrative Images from the original note were not included. Patient ID: Andreina Sesay is a 50 y.o. female Subjective: Patient is a 50-year-old female returns for further treatment of prolactinoma. She states that she was diagnosed with her prolactinoma in 2012. She states that she developed an abscess in her left breast in 2011; had surgical removal of the abscess. She developed a second abscess in her right breast in 2012 and at that time had an evaluation of her hormone levels. Her prolactin level was elevated in the 400 range. She was started on cabergoline at that time and has continued to take cabergoline 0.25 mg twice weekly. At the time of diagnosis, she did have intermittent galactorrhea which she actually has noted since her teenage years. She had no change in her menstrual periods at that time. She has had 1 child in 2000; delivered by , complicated by hyperemesis gravidarum. Currently her menstrual periods are irregular, and she is having hot flashes at night. Recent prolactin level is not available. 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 She is on levothyroxine 75 mcg daily. Recently she was hospitalized for babesiosis. She states that she developed fever, nausea, vomiting, diarrhea, and severe headache. She was admitted to [facility], and then transferred to [facility]. She was diagnosed with babesiosis and CMV infection. She was treated with multiple antibiotics. Following her discharge she continued to have nausea and vomiting, even with Zofran. She is did stop her antibiotic therapy. For the past few days she has been able to keep her food down. Recent prolactin level is not available. 10/05/21 Interim notes: Overall has been feeling better. She has started the Noom program for weight loss, and has lost 24 pounds. Review of Systems: Review of Systems Constitutional: Positive for unexpected weight change (decreased 24 pounds with Noom program). Negative for appetite change and fatigue. HENT: Negative for trouble swallowing and voice change. Eyes: Negative for visual disturbance. Respiratory: Negative for cough and shortness of breath. Cardiovascular: Negative for chest pain and palpitations. Gastrointestinal: Negative for constipation, diarrhea, nausea and vomiting. Endocrine: Negative for cold intolerance and heat intolerance. Musculoskeletal: Negative for neck pain. Neurological: Positive for headaches. Negative for tremors. The following portions of the patient's history were reviewed and updated as appropriate: allergies, current medications, past family history, past medical history, past social history, past surgical history and problem list. No Known Allergies Current Outpatient Medications Medication Sig Dispense Refill albuterol 90 mcg/actuation inhaler Inhale 2 (two) puffs every 4 (four) hours as needed for wheezing, shortness of breath or cough . 6.7 g 0 buPROPion (WELLBUTRIN XL) 300 MG 24 hr tablet cabergoline (DOSTINEX) 0.5 mg tablet Take 0.5 (one-half) tablet (0.25 mg total) by mouth twice weekly Start: 03/24/21. 4 tablet 6 flu vac qv 2020,18yr up,rc,PF, (FLUBLOK QUAD) syringe Sign this order in conjunction with the immunization order to satisfy [place] Board [employer] Pharmacy Positive ID requirements for immunization orders. . 0.5 mL 0 levothyroxine (SYNTHROID, LEVOTHROID) 75 MCG tablet Take 1 (one) tablet (75 mcg total) by mouth every morning . 30 tablet 11 valACYclovir (VALTREX) 1000 MG tablet Take 2 (two) tablets (2,000 mg total) by mouth 2 (two) times a day For one day . 4 tablet 2 pantoprazole (PROTONIX) 20 MG tablet Take 1 (one) tablet (20 mg total) by mouth daily . (Patient not taking: Reported on 10/05/2021 .) 90 tablet 1 promethazine (PHENERGAN) 25 MG tablet Take 1 (one) tablet (25 mg total) by mouth every 6 (six) hours as needed for nausea . (Patient not taking: Reported on 10/05/2021 .) 30 tablet 0 No current facility-administered medications for this visit. 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 Phil Powers EGD N/A 11/24/2020 Procedure: ESOPHAGOGASTRODUODENOSCOPY WITH BIOPSY AND GONZALEZ CHIP PLACEMENT; Surgeon: René High MD; Location: [facility]; Service: General Surgery ESOPHAGEAL MANOMETRY N/A 11/24/2020 Procedure: ESOPHAGEAL MANOMETRY; Surgeon: René High MD; Location: [facility]; Service: General Surgery TUBAL LIGATION Family History Problem Relation Age of Onset Rheum arthritis Mother Hypertension Mother Emphysema Father COPD Father Hypothyroidism Father Cancer Maternal Grandmother colon Thyroid disease Maternal Grandmother Hypertension Maternal Grandfather Heart disease Paternal Grandfather Heart disease Paternal Uncle DISTRICT COURT JUDGE: [id number]; 2000, hyperemesis gravidarum Social History Socioeconomic History Marital status: Occupational History 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 Heats home with gas and has city water. Sleeps with 2-3 pillows. Objective: BP 112/76 Pulse 80 Ht 5' Wt 58.1 kg (128 lb) BMI 25.00 kg/m Wt Readings from Last 3 Encounters: 10/05/21 58.1 kg (128 lb) 06/27/21 61.7 kg (136 lb) 04/27/21 67.6 kg (149 lb) Physical Exam: Physical Exam Constitutional: Appearance: Normal appearance. She is well-developed. HENT: Head: Normocephalic and atraumatic. Eyes: General: No scleral icterus. Conjunctiva/sclera: Conjunctivae normal. Neck: Thyroid: Thyromegaly (mild) present. Cardiovascular: Rate and Rhythm: Normal rate and regular rhythm. Heart sounds: Normal heart sounds. No murmur heard. Pulmonary: Effort: Pulmonary effort is normal. No respiratory distress. Breath sounds: Normal breath sounds. No wheezing or rales. Abdominal: General: Bowel sounds are normal. Musculoskeletal: Right lower leg: No edema. Left lower leg: No edema. Lymphadenopathy: Cervical: No cervical adenopathy. Skin: General: Skin is warm. Findings: No erythema. Neurological: Mental Status: She is alert and oriented to person, place, and time. Cranial Nerves: No cranial nerve deficit. Psychiatric: Mood and Affect: Mood normal. Behavior: Behavior normal. Thought Content: Thought content normal. Judgment: Judgment normal. Lab review: 06/28/2021 sodium 137, potassium 4.1, creatinine 0.88, estimated GFR 73, BG 91, AST 21, ALT 35 WBC 3.9, hemoglobin 14.8, hematocrit 43.6, platelet count 235,000 04/26/2021 TSH 0.30, FT4--1.3, prolactin 1.8 Sodium 140, potassium 4.5, creatinine 0.73, estimated GFR 98 WBC 3.98, hemoglobin 14.1, hematocrit 42.3, platelet count 258,000 03/05/2021 TSH 7.93, FT4--0.85 10/14/2020 TSH 3.27, prolactin 72.3 03/30/21 US THYROID ONLY COMPARISON: None. FINDINGS: Thyroid gland is normal in size and predominantly homogeneous in echotexture. Overall vascularity is normal. Right thyroid lobe measures 4.0 x 1.9 x 1.6 cm (6.3 mL). Isthmus measures 0.5 cm in AP dimension. Left thyroid lobe measures 3.7 x 1.4 x 1.3 cm (3.4 mL). Left inferior thyroid hyperechoic solid lesion measures 0.4 x 0.3 x 0.2 cm. Findings may represent a small nodule or macrocalcification. IMPRESSION: Normal-size thyroid gland with predominant homogeneous echotexture. Sub 5 mm nodule/macrocalcification of the left inferior thyroid lobe. Favored to be benign given size and sonographic appearance. 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 Thyroid ultrasound reveals normal size thyroid, sub 5 mm nodule/macrocalcification of the left inferior thyroid lobe. Prolactin and TFTs within target range in 04/19. MRI brain 03/04/21 does not show abnormal pituitary, although pituitary focus not performed. Plan: 1. Continue cabergoline 0.25 mg twice weekly and levothyroxine 75 mcg/day. 5. Follow up in 6 months with repeat lab testing before appointment. Return in about 6 months (around 04/06/2022). Electronically signed by Marge Arndt MD 10/05/21 documented in this encounter [facility] 06-30-2021 Evaluation + Plan note Associated Problem(s): COVID-19 Most viruses last between 2 and 14 days; usually the worst days are days 3-5. Covid can be a bit worse. It is very important to get plenty of rest and fluids. You can also use a Neti Pot or nasal saline for congestion. Salt water gargles and warm tea with honey can help with sore throats. Use the OTC medications we discussed at the visit. If you are not improving by day 7-10 please let me know. Viruses can turn into bacterial infections. [facility] 06-30-2021 Miscellaneous Notes Associated Problem(s): COVID-19 Most viruses last between 2 and 14 days; usually the worst days are days 3-5. Covid can be a bit worse. It is very important to get plenty of rest and fluids. You can also use a Neti Pot or nasal saline for congestion. Salt water gargles and warm tea with honey can help with sore throats. Use the OTC medications we discussed at the visit. If you are not improving by day 7-10 please let me know. Viruses can turn into bacterial infections. documented in this encounter [facility] 06-30-2021 Instructions Darleen Naylor CNP - 06/30/2021 12:47 PM EST Problem List Items Addressed This Visit Other COVID-19 - Primary Most viruses last between 2 and 14 days; usually the worst days are days 3-5. Covid can be a bit worse. It is very important to get plenty of rest and fluids. You can also use a Neti Pot or nasal saline for congestion. Salt water gargles and warm tea with honey can help with sore throats. Use the OTC medications we discussed at the visit. If you are not improving by day 7-10 please let me know. Viruses can turn into bacterial infections. If any referrals were placed at the time of your visit please allow 2 weeks for processing. If you haven't heard from anyone within 2 weeks please contact my office so we can look into the status of your referral. If you were given any labs today please ensure they are completed according to the directions given. Once labs are completed please allow 1-2 weeks for us to receive the results, review them, and let you know what steps, if any, are needed next. If you haven't heard from us after that please call to inquire. If labs were ordered to be done PRIOR to your next visit we will discuss the results at the time of your office visit. If any procedures or imaging studies were ordered that must be prior authorized please give us 2 weeks to get them approved. Once approved someone should call you to schedule them or give you a date and time that they were scheduled for. If you haven't heard anything within 2 weeks of the office visit please call the office so we can look into their status. Customer Service/Billing Questions: [phone] MyChart Assistance: [phone] or [phone] Financial Assistance: [phone] or [phone] documented in this encounter [facility] 06-30-2021 History of Present illness Narrative Telephone Visit Via Phone Call [facility] [address] [facility] [address] [facility] [id number] Telephone Visit [facility] 06/30/2021 Darleen Naylor CNP Provider Location: [address] [place] [address] Patient Location [place]: None Patient Location: Patient's Home Patient: Andreina Sesay Date of : 1970 (50 y.o. female) PCP: Darleen Naylor CNP I discussed risks, benefits and alternatives of a telephone visit telemedicine consultation with the patient (and any accompanying persons) including the risks that the patient's personal health details and medical records will be discussed over real-time, synchronous, interactive audio technology, the visit will not be recorded without the express consent of both the provider and the patient, and that there are inherent diagnostic limitations compared to [id number] evaluations. We elected to proceed with the telephone visit telemedicine consultation. Patient states that she was diagnosed with Covid via home test in the past few days. She states she has been running a low grade fever and has cold symptoms. She is questioning if she needs monoclonal antibodies. Discussed. She states she is using OTC cold medicine to control symptoms and denies further concerns. The following portions of the patient's history were reviewed and updated as appropriate: allergies, current medications, past family history, past medical history, past social history, past surgical history, and problem list. Review of Systems Constitutional: Positive for activity change, appetite change, chills, diaphoresis, fatigue and fever. HENT: Positive for congestion. Negative for hearing loss. Eyes: Negative for visual disturbance. Respiratory: Positive for cough. Negative for chest tightness, shortness of breath and wheezing. Cardiovascular: Negative for chest pain and palpitations. Musculoskeletal: Positive for myalgias. Negative for gait problem. Skin: Negative. Psychiatric/Behavioral: Negative for agitation. Patient's Medications New Prescriptions No medications on file Previous Medications ALBUTEROL 90 MCG/ACTUATION INHALER Inhale 2 (two) puffs every 4 (four) hours as needed for wheezing, shortness of breath or cough . BUPROPION (WELLBUTRIN XL) 300 MG 24 HR TABLET CABERGOLINE (DOSTINEX) 0.5 MG TABLET Take 0.5 (one-half) tablet (0.25 mg total) by mouth twice weekly Start: 03/24/21. FLU VAC QV 2020,18YR UP,RC,PF, (FLUBLOK QUAD) SYRINGE Sign this order in conjunction with the immunization order to satisfy [place] [employer] Positive ID requirements for immunization orders. . LEVOTHYROXINE (SYNTHROID, LEVOTHROID) 75 MCG TABLET Take 1 (one) tablet (75 mcg total) by mouth every morning . PANTOPRAZOLE (PROTONIX) 20 MG TABLET Take 1 (one) tablet (20 mg total) by mouth daily . PROMETHAZINE (PHENERGAN) 25 MG TABLET Take 1 (one) tablet (25 mg total) by mouth every 6 (six) hours as needed for nausea . VALACYCLOVIR (VALTREX) 1000 MG TABLET Take 2 (two) tablets (2,000 mg total) by mouth 2 (two) times a day For one day . Modified Medications No medications on file Discontinued Medications No medications on file Assessment/Plan: Problem List Items Addressed This Visit Other COVID-19 - Primary Most viruses last between 2 and 14 days; usually the worst days are days 3-5. Covid can be a bit worse. It is very important to get plenty of rest and fluids. You can also use a Neti Pot or nasal saline for congestion. Salt water gargles and warm tea with honey can help with sore throats. Use the OTC medications we discussed at the visit. If you are not improving by day 7-10 please let me know. Viruses can turn into bacterial infections. I have spent 5 minutes with the patient reviewing the HPI and Plan of Care. documented in this encounter [facility] 06-27-2021 Instructions Darleen Naylor CNP - 06/27/2021 10:16 AM EST Problem List Items Addressed This Visit Endocrine Juarez's thyroiditis Look into the AIP diet (Autoimmune protocol) diet to help with all of your autoimmune issues. Other Visit Diagnoses Herpes labialis - Primary Relevant Medications valACYclovir (VALTREX) 1000 MG tablet If any referrals were placed at the time of your visit please allow 2 weeks for processing. If you haven't heard from anyone within 2 weeks please contact my office so we can look into the status of your referral. If you were given any labs today please ensure they are completed according to the directions given. Once labs are completed please allow 1-2 weeks for us to receive the results, review them, and let you know what steps, if any, are needed next. If you haven't heard from us after that please call to inquire. If labs were ordered to be done PRIOR to your next visit we will discuss the results at the time of your office visit. If any procedures or imaging studies were ordered that must be prior authorized please give us 2 weeks to get them approved. Once approved someone should call you to schedule them or give you a date and time that they were scheduled for. If you haven't heard anything within 2 weeks of the office visit please call the office so we can look into their status. Customer Service/Billing Questions: [phone] MyChart Assistance: [phone] or [phone] Financial Assistance: [phone] or [phone] documented in this encounter [facility] 06-27-2021 Evaluation + Plan note Associated Problem(s): Juarez's thyroiditis Look into the AIP diet (Autoimmune protocol) diet to help with all of your autoimmune issues. [facility] 06-27-2021 Miscellaneous Notes Associated Problem(s): Juarez's thyroiditis Look into the AIP diet (Autoimmune protocol) diet to help with all of your autoimmune issues. documented in this encounter [facility] 06-27-2021 History of Present illness Narrative Images from the original note were not included. Subjective Patient ID: Andreina Sesay is a 50 y.o. female. Patient is here today for a physical for a new job. Form is scanned into chart. 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 Mouth Lesions The current episode started yesterday. The onset was sudden. The problem occurs occasionally. The problem has been gradually worsening. The problem is moderate. Associated symptoms include mouth sores. Pertinent negatives include no fever, no decreased vision, no double vision, no eye itching, no photophobia, no congestion, no ear discharge, no ear pain, no headaches, no hearing loss, no rhinorrhea, no sore throat, no stridor, no swollen glands, no cough, no URI, no eye discharge, no eye pain and no eye redness. The following were reviewed and updated as appropriate for today's visit: allergies, current medications, past family history, past medical history, past social history, past surgical history and problem list. Patient's Medications New Prescriptions VALACYCLOVIR (VALTREX) 1000 MG TABLET Take 2 (two) tablets (2,000 mg total) by mouth 2 (two) times a day For one day . Previous Medications ALBUTEROL 90 MCG/ACTUATION INHALER Inhale 2 (two) puffs every 4 (four) hours as needed for wheezing, shortness of breath or cough . BUPROPION (WELLBUTRIN XL) 300 MG 24 HR TABLET CABERGOLINE (DOSTINEX) 0.5 MG TABLET Take 0.5 (one-half) tablet (0.25 mg total) by mouth twice weekly Start: 03/24/21. FLU VAC QV 2020,18YR UP,RC,PF, (FLUBLOK QUAD) SYRINGE Sign this order in conjunction with the immunization order to satisfy [place] [employer] Positive ID requirements for immunization orders. . LEVOTHYROXINE (SYNTHROID, LEVOTHROID) 75 MCG TABLET Take 1 (one) tablet (75 mcg total) by mouth every morning . PANTOPRAZOLE (PROTONIX) 20 MG TABLET Take 1 (one) tablet (20 mg total) by mouth daily . PROMETHAZINE (PHENERGAN) 25 MG TABLET Take 1 (one) tablet (25 mg total) by mouth every 6 (six) hours as needed for nausea . Modified Medications No medications on file Discontinued Medications No medications on file Review of Systems Review of Systems Constitutional: Negative for activity change, fatigue and fever. HENT: Positive for mouth sores. Negative for congestion, ear discharge, ear pain, hearing loss, rhinorrhea and sore throat. Eyes: Negative for double vision, photophobia, pain, discharge, redness, itching and visual disturbance. Respiratory: Negative for cough, chest tightness, shortness of breath and stridor. Cardiovascular: Negative for chest pain and palpitations. Musculoskeletal: Positive for arthralgias and myalgias. Negative for gait problem. Skin: Negative. Neurological: Negative for headaches. Psychiatric/Behavioral: Negative for agitation. Vitals: 06/27/21 0958 BP: 124/84 BP Location: Left arm Patient Position: Sitting BP Cuff Size: Adult Pulse: 85 Resp: 16 Temp: 98.3 F (36.8 C) TempSrc: Temporal SpO2: 96% Weight: 61.7 kg (136 lb) Height: 5' Body mass index is 26.56 kg/m . Physical Exam Physical Exam Constitutional: Appearance: She is well-developed. HENT: Right Ear: External ear normal. Left Ear: External ear normal. Nose: Nose normal. Mouth/Throat: Comments: Cold sore noted on lower lip in center Eyes: General: Lids are normal. Conjunctiva/sclera: Conjunctivae normal. Cardiovascular: Rate and Rhythm: Normal rate and regular rhythm. Heart sounds: Normal heart sounds. No murmur heard. Pulmonary: Effort: Pulmonary effort is normal. Breath sounds: Normal breath sounds. Musculoskeletal: Cervical back: Normal range of motion. Comments: Normal gait Skin: General: Skin is warm and dry. Neurological: Mental Status: She is alert and oriented to person, place, and time. GCS: GCS eye subscore is 4. GCS verbal subscore is 5. GCS motor subscore is 6. Psychiatric: Speech: Speech normal. Behavior: Behavior normal. OARRS/NARxCHECK Report Received and Assessed: No data found Date controlled substance agreement signed: No data found Date of last drug screen: No data found Functional Assessment: No data found Assessment/Plan Problem List Items Addressed This Visit Endocrine Juarez's thyroiditis Look into the AIP diet (Autoimmune protocol) diet to help with all of your autoimmune issues. Other Visit Diagnoses Herpes labialis - Primary Relevant Medications valACYclovir (VALTREX) 1000 MG tablet Preventative Goals Goals Be Tobacco Free Using tobacco doubles your risk of heart disease and can damage blood vessels in your legs. For any new medications prescribed today, patient was educated about indications for the medication, how to take the medication and potential side effects of the medications. Darleen Naylor CNP documented in this encounter [facility] 04-27-2021 Instructions Darleen Naylor CNP - 04/27/2021 3:24 PM EST Problem List Items Addressed This Visit Other Cough Relevant Medications pantoprazole (PROTONIX) 20 MG tablet If any referrals were placed at the time of your visit please allow 2 weeks for processing. If you haven't heard from anyone within 2 weeks please contact my office so we can look into the status of your referral. If you were given any labs today please ensure they are completed according to the directions given. Once labs are completed please allow 1-2 weeks for us to receive the results, review them, and let you know what steps, if any, are needed next. If you haven't heard from us after that please call to inquire. If labs were ordered to be done PRIOR to your next visit we will discuss the results at the time of your office visit. If any procedures or imaging studies were ordered that must be prior authorized please give us 2 weeks to get them approved. Once approved someone should call you to schedule them or give you a date and time that they were scheduled for. If you haven't heard anything within 2 weeks of the office visit please call the office so we can look into their status. Customer Service/Billing Questions: [phone] MyChart Assistance: [phone] or [phone] Financial Assistance: [phone] or [phone] documented in this encounter [facility] 04-27-2021 History of Present illness Narrative Images from the original note were not included. Subjective Patient ID: Andreina Sesay is a 50 y.o. female. Patient is here for a one month follow up after hospitalization in [place]. She was diagnosed with Babesiosis, tick borne illness. She was treated with ATOVAQUONE, Doxycycline and Azithromycin. She states they are not following her through infectious disease unless she has new or returning symptoms. She states overall she is feeling much better and all of her symptoms have improved. She denies any needs or complaints at today's visit. The following were reviewed and updated as appropriate for today's visit: allergies, current medications, past family history, past medical history, past social history, past surgical history and problem list. Patient's Medications New Prescriptions No medications on file Previous Medications ALBUTEROL 90 MCG/ACTUATION INHALER Inhale 2 (two) puffs every 4 (four) hours as needed for wheezing, shortness of breath or cough . CABERGOLINE (DOSTINEX) 0.5 MG TABLET Take 0.5 (one-half) tablet (0.25 mg total) by mouth twice weekly Start: 03/24/21. FLU VAC QV 2020,18YR UP,RC,PF, (FLUBLOK QUAD) SYRINGE Sign this order in conjunction with the immunization order to satisfy [place] Board [employer] Pharm[employer] Positive ID requirements for immunization orders. . LEVOTHYROXINE (SYNTHROID, LEVOTHROID) 75 MCG TABLET Take 1 (one) tablet (75 mcg total) by mouth every morning . PROMETHAZINE (PHENERGAN) 25 MG TABLET Take 1 (one) tablet (25 mg total) by mouth every 6 (six) hours as needed for nausea . Modified Medications Modified Medication Previous Medication PANTOPRAZOLE (PROTONIX) 20 MG TABLET pantoprazole (PROTONIX) 20 MG tablet Take 1 (one) tablet (20 mg total) by mouth daily . Take 1 (one) tablet (20 mg total) by mouth daily . Discontinued Medications No medications on file Review of Systems Review of Systems Vitals: 04/27/21 1500 04/27/21 1501 BP: (!) 128/91 113/78 BP Location: Left arm Left arm Patient Position: Sitting Sitting BP Cuff Size: Adult Adult Pulse: 99 86 Resp: 16 Temp: 97 F (36.1 C) TempSrc: Temporal SpO2: 97% Weight: 67.6 kg (149 lb) Height: 5' Body mass index is 29.1 kg/m . Physical Exam Physical Exam Constitutional: Appearance: She is well-developed. She is obese. HENT: Right Ear: External ear normal. Left Ear: External ear normal. Nose: Nose normal. Eyes: General: Lids are normal. Conjunctiva/sclera: Conjunctivae normal. Cardiovascular: Rate and Rhythm: Normal rate and regular rhythm. Heart sounds: Normal heart sounds. No murmur heard. Pulmonary: Effort: Pulmonary effort is normal. Breath sounds: Normal breath sounds. Musculoskeletal: Cervical back: Normal range of motion. Comments: Normal gait Skin: General: Skin is warm and dry. Neurological: Mental Status: She is alert and oriented to person, place, and time. GCS: GCS eye subscore is 4. GCS verbal subscore is 5. GCS motor subscore is 6. Psychiatric: Speech: Speech normal. Behavior: Behavior normal. OARRS/NARxCHECK Report Received and Assessed: No data found Date controlled substance agreement signed: No data found Date of last drug screen: No data found Functional Assessment: No data found Assessment/Plan Problem List Items Addressed This Visit Other Cough Relevant Medications pantoprazole (PROTONIX) 20 MG tablet Preventative Goals Goals Be Tobacco Free Using tobacco doubles your risk of heart disease and can damage blood vessels in your legs. For any new medications prescribed today, patient was educated about indications for the medication, how to take the medication and potential side effects of the medications. Darleen Naylor CNP documented in this encounter [facility] 03-28-2021 Miscellaneous Notes Associated Problem(s): Cough Positional at this time most likely related to GERD which could be silent GERD especially with her history of gastritis and hiatal hernia on EGD done recently. Would benefit from starting back on Protonix to see if it would help with her cough symptoms. In the setting of the exam today and crackles in the lungs is worth repeating chest x-ray to make sure she does not have any fluid overload or infection related to her recent hospitalization that could be treated. Associated Problem(s): Pituitary adenoma (HCC) Chronic, followed up by endocrine with hyperprolactinemia on cabergoline. -Continue to monitor with endocrinology. Associated Problem(s): Rheumatoid arthritis (HCC) Chronic, formerly diagnosed with rheumatology, lost to follow-up Still getting flareups frequently. Urged to follow-up with rheumatology in [place]. Associated Problem(s): Seasonal depression (HCC) Chronic, currently stable not on any medications. We will continue to monitor and offer support documented in this encounter [facility] 03-28-2021 History of Present illness Narrative Chief Complaint Patient presents with Follow-up 1 WEEK HPI: Patient is a 50-year-old female with a past medical history of GERD, depression, esophagitis, rheumatoid arthritis and thyroid disease. Presented a month ago with fever , headache and neck pain that was excruciating. Presented to the ER on 02/17, diagnosed with bronchitis was put on antibiotic , prednisone which tremendously helped Relapsed after course was done , went to the ER in , ruled out meningitis was initially on IV vancomycin, ampicillin, ceftriaxone and acyclovir empirically, stopped after unremarkable LP CSF findings. ID and rheumatology were consulted with concerns for tickborne disease including Lyme, Rickettsia, Anaplasma. Was transferred to the [facility] for further evaluation. Ruled out Stills disease, persistent suspicion of tick borne disease and was discharged on doxycycline for 3 weeks total to finish on 03/27. 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 Reports that she finished doxycycline 2 days ago. Has not been able to keep anything down, still intolerant of p.o. tests otherwise came back negative from . Improved abdominal pain, N/V and diarrhea after she stopped the doxycycline. Completed her azithromycin and atovaquone. Cough is still persistent , responds to the inhaler , usually at night when she lays down. Went back to smoking after discharge smoking about 1 pack/day but sometimes less as she was not feeling very well. She has had EGD done with Dr. High in October 2020 that showed acute on chronic inflammatory gastritis and esophagitis. Discontinued Protonix to get her procedure and never got back on it. Seasonal depression: Chronic, used to be on Welbutrin. Usually around this time of the year she feels more depressed but this time she was already sick in the hospital does not feel depressed today. Pituitary adenoma: 2011, hyperprolactinemia , sure enough that she had it in her adolescence. Had two miscarriages Rheumatoid arthritis: Has been seen by Rheumatology in [place] . Small joint pains living on tylenol and ibuprofen on a daily basis, tried Mobic in the past with no relief. Nicotine dependence: Current everyday smoker about a pack per day for the past 32 years, also smokes quite about 3 years ago and switched to the Juul vapes. Has tried quitting in the past with no success and in her last hospital admission did not feel like smoking but as soon as she was discharged got back to smoking. 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 Phil Powers EGD N/A 11/24/2020 Procedure: ESOPHAGOGASTRODUODENOSCOPY WITH BIOPSY AND GONZALEZ CHIP PLACEMENT; Surgeon: René High MD; Location: [facility]; Service: General Surgery ESOPHAGEAL MANOMETRY N/A 11/24/2020 Procedure: ESOPHAGEAL MANOMETRY; Surgeon: René High MD; Location: [facility]; Service: General Surgery TUBAL LIGATION Family History Problem Relation Age of Onset Rheum arthritis Mother Hypertension Mother Emphysema Father COPD Father Hypothyroidism Father Cancer Maternal Grandmother colon Thyroid disease Maternal Grandmother Hypertension Maternal Grandfather Heart disease Paternal Grandfather Heart disease Paternal Uncle Social History Tobacco Use Smoking status: Current Every Day Smoker Packs/day: 1.00 Years: 32.00 Pack years: 32.00 Types: Cigarettes Smokeless tobacco: Never Used Tobacco comment: +1 pack a day Vaping Use Vaping Use: Never used Substance Use Topics Alcohol use: Yes Comment: occasional Drug use: No Review of Systems Vitals: 03/28/21 1549 BP: 114/77 BP Location: Right arm Patient Position: Sitting BP Cuff Size: Adult Pulse: 99 Resp: 16 Temp: 98.5 F (36.9 C) TempSrc: Infrared SpO2: 96% Weight: 68.4 kg (150 lb 12.8 oz) Height: 5' Estimated body mass index is 29.45 kg/m as calculated from the following: Height as of this encounter: 5'. Weight as of this encounter: 68.4 kg (150 lb 12.8 oz). Physical Exam Constitutional: General: She is not in acute distress. Appearance: She is not ill-appearing. HENT: Head: Normocephalic and atraumatic. Eyes: Extraocular Movements: Extraocular movements intact. Conjunctiva/sclera: Conjunctivae normal. Pupils: Pupils are equal, round, and reactive to light. Cardiovascular: Rate and Rhythm: Normal rate and regular rhythm. Pulses: Normal pulses. Heart sounds: Normal heart sounds. No murmur heard. No gallop. Pulmonary: Effort: Pulmonary effort is normal. Breath sounds: Rhonchi (Bibasilar, predominantly left-sided) present. No wheezing or rales. Chest: Chest wall: No tenderness. Abdominal: General: Abdomen is flat. Bowel sounds are normal. There is no distension. Palpations: Abdomen is soft. There is no mass. Tenderness: There is no abdominal tenderness. There is no right CVA tenderness, left CVA tenderness, guarding or rebound. Musculoskeletal: General: No tenderness. Normal range of motion. Cervical back: Normal range of motion and neck supple. No rigidity. No muscular tenderness. Right lower leg: No edema. Left lower leg: No edema. Lymphadenopathy: Cervical: No cervical adenopathy. Skin: General: Skin is warm. Findings: No erythema or rash. Neurological: General: No focal deficit present. Mental Status: She is alert and oriented to person, place, and time. Sensory: No sensory deficit. Motor: No weakness. Gait: Gait normal. Psychiatric: Mood and Affect: Mood normal. Behavior: Behavior normal. Thought Content: Thought content normal. Judgment: Judgment normal. OARRS/NARxCHECK Report Received and Assessed: No data found Date controlled substance agreement signed: No data found Date of last drug screen: No data found Functional Assessment: No data found PHQ9: MARY-7 Tobacco Counseling: Ready to quit: Yes Counseling given: Yes Comment: +1 pack a day Patient's Medications New Prescriptions NICOTINE (NICODERM CQ) 21 MG/[address] 1 (one) patch on the skin daily . NICOTINE POLACRILEX (NICORETTE) 2 MG GUM Apply 1 (one) each (2 mg total) to the mouth or throat as needed for smoking cessation . PANTOPRAZOLE (PROTONIX) 20 MG TABLET Take 1 (one) tablet (20 mg total) by mouth daily . Previous Medications ALBUTEROL 90 MCG/ACTUATION INHALER Inhale 2 (two) puffs every 4 (four) hours as needed for wheezing, shortness of breath or cough . CABERGOLINE (DOSTINEX) 0.5 MG TABLET Take 0.5 (one-half) tablet (0.25 mg total) by mouth twice weekly Start: 03/24/21. FLU VAC QV 2020,18YR UP,RC,PF, (FLUBLOK QUAD) SYRINGE Sign this order in conjunction with the immunization order to satisfy [place] Board [employer] Pharmacy Positive ID requirements for immunization orders. . LEVOTHYROXINE (SYNTHROID, LEVOTHROID) 75 MCG TABLET Take 1 (one) tablet (75 mcg total) by mouth every morning . PROMETHAZINE (PHENERGAN) 25 MG TABLET Take 1 (one) tablet (25 mg total) by mouth every 6 (six) hours as needed for nausea . Modified Medications No medications on file Discontinued Medications No medications on file Health Maintenance Due Topic Date Due Wellness Visit Never done HIV Screening Never done Mammogram 12/11/2018 Pap Smear 01/28/2021 Assessment & Plan Problem List Items Addressed This Visit Endocrine Pituitary adenoma (HCC) Chronic, followed up by endocrine with hyperprolactinemia on cabergoline. -Continue to monitor with endocrinology. Musculoskeletal and Integument Rheumatoid arthritis (HCC) Chronic, formerly diagnosed with rheumatology, lost to follow-up Still getting flareups frequently. Urged to follow-up with rheumatology in [place]. Other Seasonal depression (HCC) Chronic, currently stable not on any medications. We will continue to monitor and offer support Cough - Primary Positional at this time most likely related to GERD which could be silent GERD especially with her history of gastritis and hiatal hernia on EGD done recently. Would benefit from starting back on Protonix to see if it would help with her cough symptoms. In the setting of the exam today and crackles in the lungs is worth repeating chest x-ray to make sure she does not have any fluid overload or infection related to her recent hospitalization that could be treated. Relevant Medications pantoprazole (PROTONIX) 20 MG tablet Other Relevant Orders XR Chest AP/PA and LAT Other Visit Diagnoses Current smoker Relevant Medications nicotine (NICODERM CQ) 21 mg/24 hr nicotine polacrilex (NICORETTE) 2 mg gum Other Relevant Orders Comprehensive Metabolic Panel Lipid Panel Encounter for immunization Relevant Medications flu vac qv 2020,18yr up,rc,PF, (FLUBLOK QUAD) syringe Other Relevant Orders Influenza vaccine IIV4 18 yo or >,Flublok Quad (Completed) Check PHQ-9 in the next visit. Return in about 4 weeks (around 04/25/2021) for Follow Up. TANIA JUDGE MD [facility] [address] [facility] [address] [place] [phone] Dept: [phone] documented in this encounter [facility] 03-22-2021 History of Present illness Narrative Images from the original note were not included. Patient ID: Andreina Sesay is a 50 y.o. female Subjective: Patient is a 50-year-old female referred for further treatment of prolactinoma. She states that she was diagnosed with her prolactinoma in 2012. She states that she developed an abscess in her left breast in 2011; had surgical removal of the abscess. She developed a second abscess in her right breast in 2012 and at that time had an evaluation of her hormone levels. Her prolactin level was elevated in the 400 range. She was started on cabergoline at that time and has continued to take cabergoline 0.25 mg twice weekly. At the time of diagnosis, she did have intermittent galactorrhea which she actually has noted since her teenage years. She had no change in her menstrual periods at that time. She has had 1 child in 2000; delivered by , complicated by hyperemesis gravidarum. Currently her menstrual periods are irregular, and she is having hot flashes at night. Recent prolactin level is not available. 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 She is on levothyroxine 75 mcg daily. Recently she was hospitalized for babesiosis. She states that she developed fever, nausea, vomiting, diarrhea, and severe headache. She was admitted to [facility], and then transferred to [facility]. She was diagnosed with babesiosis and CMV infection. She was treated with multiple antibiotics. Following her discharge she continued to have nausea and vomiting, even with Zofran. She is did stop her antibiotic therapy. For the past few days she has been able to keep her food down. Recent prolactin level is not available. Review of Systems: Review of Systems Constitutional: Positive for fatigue (still recovering from recent hopitalization) and unexpected weight change (increased 20-30 pounds over 2-3 years). Negative for appetite change. HENT: Negative for trouble swallowing and voice change. Eyes: Positive for pain (photosensitivity improved) and visual disturbance (blurred vision). Respiratory: Positive for cough and shortness of breath (while in hospital). Cardiovascular: Negative for chest pain and palpitations. Endocarditis while in hospital Gastrointestinal: Positive for diarrhea, nausea (improved) and vomiting (improved). Negative for constipation. Endocrine: Positive for cold intolerance and heat intolerance. Musculoskeletal: Negative for neck pain. Neurological: Positive for tremors, weakness and headaches (in hospital, improved). Psychiatric/Behavioral: Negative for sleep disturbance. The following portions of the patient's history were reviewed and updated as appropriate: allergies, current medications, past family history, past medical history, past social history, past surgical history and problem list. No Known Allergies Current Outpatient Medications Medication Sig Dispense Refill albuterol 90 mcg/actuation inhaler Inhale 2 (two) puffs every 4 (four) hours as needed for wheezing, shortness of breath or cough . 6.7 g 0 cabergoline (DOSTINEX) 0.5 mg tablet Take 0.5 (one-half) tablet (0.25 mg total) by mouth twice weekly . 4 tablet 1 levothyroxine (SYNTHROID, LEVOTHROID) 75 MCG tablet Take 1 (one) tablet (75 mcg total) by mouth every morning . 90 tablet 3 promethazine (PHENERGAN) 25 MG tablet Take 1 (one) tablet (25 mg total) by mouth every 6 (six) hours as needed for nausea . 30 tablet 0 buPROPion (WELLBUTRIN XL) 300 MG 24 hr tablet Take 1 (one) tablet (300 mg total) by mouth daily . (Patient not taking: Reported on 03/22/2021 .) 90 tablet 3 No current facility-administered medications for this visit. 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 Phil Powers EGD N/A 11/24/2020 Procedure: ESOPHAGOGASTRODUODENOSCOPY WITH BIOPSY AND GONZALEZ CHIP PLACEMENT; Surgeon: René High MD; Location: [facility]; Service: General Surgery ESOPHAGEAL MANOMETRY N/A 11/24/2020 Procedure: ESOPHAGEAL MANOMETRY; Surgeon: René High MD; Location: [facility]; Service: General Surgery TUBAL LIGATION Family History Problem Relation Age of Onset Rheum arthritis Mother Hypertension Mother Emphysema Father COPD Father Hypothyroidism Father Cancer Maternal Grandmother colon Thyroid disease Maternal Grandmother Hypertension Maternal Grandfather Heart disease Paternal Grandfather Heart disease Paternal Uncle DISTRICT COURT JUDGE: [id number]; 2000, hyperemesis gravidarum Social History Socioeconomic History Marital status: Occupational History 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 Heats home with gas and has city water. Sleeps with 2-3 pillows. Objective: BP 125/84 Pulse 99 Ht 5' Wt 68.9 kg (152 lb) BMI 29.69 kg/m Wt Readings from Last 3 Encounters: 03/22/21 68.9 kg (152 lb) 02/17/21 72.6 kg (160 lb) 01/17/21 70.3 kg (155 lb) Physical Exam: Physical Exam Constitutional: Appearance: Normal appearance. She is well-developed. HENT: Head: Normocephalic and atraumatic. Eyes: General: No scleral icterus. Conjunctiva/sclera: Conjunctivae normal. Neck: Thyroid: Thyromegaly (mild) present. Cardiovascular: Rate and Rhythm: Normal rate and regular rhythm. Heart sounds: Normal heart sounds. No murmur heard. Pulmonary: Effort: Pulmonary effort is normal. No respiratory distress. Breath sounds: Normal breath sounds. No wheezing or rales. Abdominal: General: Bowel sounds are normal. Musculoskeletal: General: No edema. Right lower leg: No edema. Left lower leg: No edema. Lymphadenopathy: Cervical: No cervical adenopathy. Skin: General: Skin is warm. Findings: No erythema. Neurological: Mental Status: She is alert and oriented to person, place, and time. Cranial Nerves: No cranial nerve deficit. Psychiatric: Mood and Affect: Mood and affect and mood normal. Behavior: Behavior normal. Thought Content: Thought content normal. Judgment: Judgment normal. Lab review: 03/05/2021 TSH 7.93, FT4--0.85 10/14/2020 TSH 3.27, prolactin 72.3 Assessment: Dx: Problem List Items Addressed This Visit Endocrine Juarez's thyroiditis Hyperprolactinemia (HCC) Pituitary adenoma (HCC) Patient is a 50-year-old female with an 8-year history of prolactinoma, currently on cabergoline 0.25 mg twice weekly and Juarez's thyroiditis on levothyroxine 75 mcg daily. Prolactin and TFTs will be checked in one month after she resumes her medication regimen and recovers from recent illness. She is noted to have mild thyromegaly on exam, and thyroid ultrasound will be ordered. No symptoms of adrenal insufficiency. Plan: 1. Check TSH, FT4, Prolactin, CBC and CMP in one month. 2. Thyroid ultrasound. 3. Obtain lab and MRI results from system. 4. Continue cabergoline 0.25 mg twice weekly and levothyroxine 75 mcg/day. 5. Follow up in 6 months Return in about 6 months (around 09/19/2021). Electronically signed by Marge Arndt MD 03/27/21 7:36 PM documented in this encounter [facility] 03-18-2021 Miscellaneous Notes Associated Problem(s): Babesiosis, unspecified One of the tickborne diseases that needs treatment with azithromycin and atovaquone. I had a lengthy discussion with the patient about considering to take the medications even though she is not feeling very well and have moderate to severe GI upset. Specially with the possibility of having long-term side effects with some tickborne diseases Can take time to recover from finishing doxycycline before she starts on the other regimen next week. Associated Problem(s): Cytomegalovirus infection (HCC) Had elevated liver enzymes initially during her presentation to the ER, tested positive for CMV. I reassured the patient since she is immunocompetent that it is a self-limiting disease and not needing any antibiotics for. Should repeat blood work with the CMP during follow-up in 1 week documented in this encounter [facility] 03-18-2021 History of Present illness Narrative Telephone Visit Via Phone Call [facility] [address] [facility] [address] [facility] [phone] Telephone Visit [facility] 03/18/2021 Tania Judge MD Provider Location: [address] [place] [address] Patient Location Fish Bailer: None Patient Location: Patient's Home Patient: Andreina Sesay Date of : 1970 (50 y.o. female) PCP: Darleen Naylor CNP I discussed risks, benefits and alternatives of a telephone visit telemedicine consultation with the patient (and any accompanying persons) including the risks that the patient's personal health details and medical records will be discussed over real-time, synchronous, interactive audio technology, the visit will not be recorded without the express consent of both the provider and the patient, and that there are inherent diagnostic limitations compared to [id number] evaluations. We elected to proceed with the telephone visit telemedicine consultation. HPI Patient is a 50-year-old female with a past medical history of GERD, depression, esophagitis, rheumatoid arthritis and thyroid disease. Presented a month ago with fever , headache and neck pain that was excruciating. Presented to the ER on 02/17, diagnosed with bronchitis was put on antibiotic , prednisone which tremendously helped Relapsed after course was done , went to the ER in , ruled out meningitis was initially on IV vancomycin, ampicillin, ceftriaxone and acyclovir empirically, stopped after unremarkable LP CSF findings. ID and rheumatology were consulted with concerns for tickborne disease including Lyme, Rickettsia, Anaplasma. Was transferred to the [facility] for further evaluation. Ruled out Stills disease, persistent suspicion of tick borne disease and was discharged on doxycycline for 3 weeks total to finish on 03/27. Tested positive for Babesia, CMV , was put on azithromycin and atovaquone. Reports that she finished doxycycline 2 days ago. Has not been able to keep anything down, still intolerant of p.o. Currently having trouble eating, abdominal pain, N/V and diarrhea that she cannot leave the house feeling very weak, stopped the antibiotics/ doxycyclin 2 days ago. Unsure if she wants to start azithromycin and atovaquone at this time. Concerned about severe vaginal itching and yeast infection. Supposed to follow-up in person with PCP and rheumatology after recovery. The following portions of the patient's history were reviewed and updated as appropriate: allergies, current medications, past family history, past medical history, past social history, past surgical history and problem list. Review of Systems Patient's Medications New Prescriptions FLUCONAZOLE (DIFLUCAN) 150 MG TABLET Take 1 (one) tablet (150 mg total) by mouth once Take one now , if symptoms not resolving , repeat in 72 hours for 1 dose . PROMETHAZINE (PHENERGAN) 25 MG TABLET Take 1 (one) tablet (25 mg total) by mouth every 6 (six) hours as needed for nausea . Previous Medications ALBUTEROL 90 MCG/ACTUATION INHALER Inhale 2 (two) puffs every 4 (four) hours as needed for wheezing, shortness of breath or cough . BUPROPION (WELLBUTRIN XL) 300 MG 24 HR TABLET Take 1 (one) tablet (300 mg total) by mouth daily . CABERGOLINE (DOSTINEX) 0.5 MG TABLET Take 0.5 (one-half) tablet (0.25 mg total) by mouth twice weekly . LEVOTHYROXINE (SYNTHROID, LEVOTHROID) 75 MCG TABLET Take 1 (one) tablet (75 mcg total) by mouth every morning . Modified Medications No medications on file Discontinued Medications No medications on file Assessment/Plan: Problem List Items Addressed This Visit Other Cytomegalovirus infection (HCC) Had elevated liver enzymes initially during her presentation to the ER, tested positive for CMV. I reassured the patient since she is immunocompetent that it is a self-limiting disease and not needing any antibiotics for. Should repeat blood work with the CMP during follow-up in 1 week Babesiosis, unspecified One of the tickborne diseases that needs treatment with azithromycin and atovaquone. I had a lengthy discussion with the patient about considering to take the medications even though she is not feeling very well and have moderate to severe GI upset. Specially with the possibility of having long-term side effects with some tickborne diseases Can take time to recover from finishing doxycycline before she starts on the other regimen next week. Other Visit Diagnoses Yeast infection - Primary Relevant Medications fluconazole (DIFLUCAN) 150 MG tablet Intractable vomiting with nausea, unspecified vomiting type Relevant Medications promethazine (PHENERGAN) 25 MG tablet I have spent 25 minutes with the patient reviewing the HPI and Plan of Care. TANIA JUDGE MD Family Medicine Physician [facility] [phone] documented in this encounter [facility] 03-10-2021 Note Send Summary: Discharge Summary Providers: Provider RoleProvider Name Cristiane Talavera AttendingHusam EdmondsFalmouth HospitalJulio ko [facility] JacksonvilleDarleen hi Note Recipients: Cyndy Darleen Montez [facility] [phone] [] Discharge: Summary: Admission Date: .06-Mar-2021 19:58:00 Discharge Date: 10-Mar-2021 Attending Physician at Discharge: Husam Edmonds Admission Reason: fever of unknown origin, c/f meningitis Final Discharge Diagnoses: Fever of unknown origin Procedures: none Condition at Discharge: Fair Disposition at Discharge: .Home Vital Signs: T PRBPSpO2 [id number]% Date/Time03/10 14: 14: 14: 14: 14:53 Range(36.3C - 37.1C ) (77 - 86 ) (16 - 18 ) (108 - 118 )/ (71 - 76 ) (91% - 94% ) Highest temp of 37.1 C was recorded at 03/10 6:12 Date: Weight/Scale Type:Height: 06-Mar-2021 21:4878.8 kg / voi717.4 cm Physical Exam: GENERAL: adult female, lying in bed comfortably, NAD HEENT: NC/AT, anicteric sclera, no conjunctival injection, no rhinorrhea, no oral ulcers, EOMI CV: RRR, normal s1/s2, no m/r/g PULM: normal wob on room air, symmetric chest rise. good air entry bilaterally Abd: soft, tender to palpation in epigastric and RUQ. No rebound, no guarding. + BS 4 quadrants. Ext: no pitting edema Skin: no lesions or rashes, warm and dry Psych: cooperative, agreeable Hospital Course: Mrs. Sesay is a 50 yo F with PMHx RA not on DMARD, pituitary microadenoma on cabergoline, and hypothyroidism on levothyroxine. She presents as a transfer from [facility] complaining of 6 weeks headaches, fevers, nausea, vomiting, malaise, neck rigidity and photophobia. Patient underwent LP and transferred to [facility]- labs notable for thrombocytopenia and mild transaminitis. Ampicillin, ceftriaxone, vancomycin and acyclovir started emprically at OSH and discontinued at [facility] due to unremarkable LP CSF findings- ID and rheumatology consulted. Concern for tick-borne illness- Lyme vs rickettsia vs Anaplasma vs Ehrlichia. Rheumatology has low suspicion for adult onset Still's disease. Patient transitioned to PO doxycycline with near complete resolution of symptoms by day 2 of therapy. Plan to treat for 3 weeks total, to finish doxycycline on 03/27 and follow up with PCP and rheumatology for initiation of medication for RA. At time of discharge, several serologies still pending, including Anaplasma/Ehrlichia, Babesia, Blastomyces, Cryptococcal, and Vayas Spotted Fever. Of note, patient's CMV IgG antibody was reactive and IgM antibody was positive at >240.00. While it is possible CMV could explain the abovementioned symptoms, we will continue doxycycline until serologies for tick-borne illnesses return negative. CMV is typically a self-limiting disease in immunocompetent individuals so it is possible that the patient's improvement just happened to coincide with the administration of doxycycline. Regardless, plan to continue doxycycline until 03/27 to finish the 3 week course. Discharge Information: and Continuing Care: Lab Results - Pending: Malaria Path Review Drawn at 09-Mar-2021 06:04:00 Ehrlichia Chaffeensis Serology Drawn at 08-Mar-2021 06:54:00 Vayas Spotted Fever Drawn at 08-Mar-2021 06:54:00 Babesia IgG/IgM Antibodies Drawn at 07-Mar-2021 09:33:00 Blastomyces Serology Drawn at 07-Mar-2021 09:33:00 Culture, Blood Drawn at 07-Mar-2021 09:33:00 Lyme Ab by Immunoblot, IgG Only Drawn at 07-Mar-2021 09:33:00 Radiology Results - Pending: None Discharge Instructions: Activity: activity as tolerated. May shower.. May not return to school/work for 2 week(s). Instructions: May return to work after 2 weeks Nutrition/Diet: regular Follow Up Appointments: Follow-Up Appointment 02: Physician/Dept/Service: Darleen Naylor CNP PCP Scheduled Date/Time: 18-Mar-2021 08:05 Location: [address] [place] [address] Discharge Medications: Home Medication cabergoline 0.5 mg oral tablet - 0.5 tab(s) orally 2 times a week --Tu/ levothyroxine 75 mcg (0.075 mg) oral tablet - 1 tab(s) orally once a day doxycycline hyclate 100 mg oral tablet - 1 tab(s) orally every 12 hours -.Meds to Beds PRN Medication ondansetron 4 mg oral tablet, disintegrating - 1 tab(s) orally 4 times a day, As Needed -.Meds to Beds - .ADOD -for nausea and vomiting Attestation: Note Completion: I am a: Resident/Fellow Attending AttestationI saw and evaluated the patient. I personally obtained the cifuentes and critical portions of the history and physical exam or was physically present for cifuentes and critical portions performed by the resident/fellow. I reviewed the resident/fellows documentation and discussed the patient with the resident/fellow. I agree with the resident/fellows medical decision making as documented in the note. I personally (more content not included)... [facility] 03-07-2021 Note History of Present I llness: /Lactating: Are You no (1) Are You Currently Breastfeedingno (1) HPI: HPI: 50 year old female with history of RA not on DMARD, Juarez thyroiditis on synthroid who presents as [facility] [place] [facility] [place] headache, neck stiffness and fever, presenting for EEG evaluation. Patient initially presented to [facility] 03/02/21 with nausea, vomiting, daytime sleepiness, body aches, and fever. She reports that her symptoms began 6 weeks ago with weakness, fatigue, headache, neck pain, photophobia and fever followed by rash on face and back (back was pruritic, described as red polka dots, other rash was on right eye, both resolved now). Two days prior to onset, patient had been burning wet wood (rotten, pine wood) outside for 2-3 days in her property in [place], [place]. Patient spends a lot of time outdoors. Reports a tick on her from 2 weeks ago on her groin, she had removed it. Unknown if other ticks at been on her. Patient reports she owns 2 dogs and a cat. Her neighbor is her in laws and own cattles and chickens, however she denies any recent exposures to them. Her only recent travel outside of the [facility] has been to [place] few weeks ago however this was after her symptoms started. Denies history of spelunking or cave exposure. Denies exposure to rodents. She was seen in interval in the ED by a provider who had placed her on prednisone which she reports temporarily made her feel better, but when the course was over (about 5 days) she again became worse. On arrival to [facility] patient was given ceftriaxone, vancomycin, ampicillin and acyclovir. CTPE and CT abdomen/pelvis w/ con were negative, as was the UA. ID and neurology were consulted, and patient had an LP done. Fevers had persistent through hospital course along with neck pain and photosensitivity. Neurology had [place] [facility] [place] Currently patient complains of headache, RUQ pain, nausea and generalized weakness. Reports has history of RA, diagnosed by septic technician about one year ago but she never followed up to initiate therapy. She uses NSAIDS to manage RA pain. Vitals on arrival: Labs 03/06 prior to arrival: CBC with Hb 11.2 from 11.7, no leukocytosis, platelet 121 Metabolic panel with 139/3.7/105/29/6/0.8, Alk Phos 121, ALT 230, AST 225, all worsening CSF with 2 nucleated cells, cell count 5, 80% lymphocytes, 20% monocytes VDRL nonreactive, CMV igG positive, EBV IgG positive for capsid and nuclear antigen CSF gram, fungal stain negative, fungal cx pending, CSF lyme pending Hepatitis panel and HIV negative MRI Brain, cervical w/wo contrast: 1. No acute intracranial pathology. If there is persistent clinical concern for meningitis, recommend correlation with CSF analysis. 2. Mild degenerative changes as described above, no abnormal cord signal or enhancement. ROS x 10 systems negative other than what is stated above PMHx: As above, includes pituitary adenoma PSoHx: Tobacco: 30 PPDF Ethanol: socially Drugs: denies Living/Exposures: Lives in [place], [place] with , Patient spends a lot of time outdoors. Reports a tick on her from 2 weeks ago on her groin, she had removed it. Unknown if other ticks at been on her. Patient reports she owns 2 dogs and a cat. Her neighbor is her in laws and own cattles and chickens, however she denies any recent exposures to them. Her only recent travel outside of the [facility] has been to [place] few weeks ago however this was after her symptoms started. Denies history of spelunking and being in caves. Denies exposure to rodents. 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 PSurgHx: Appendectomy, , dilatation and curettage FHx: hypertension, thyroid disease, breast cancer Medication: Synthroid 75 mcg Allergies: NKDA Social History: Social History: Smoking Statusformer smoker (1) Allergies: No Known Allergies: Medications Prior to Admission: Admission Medication Reconciliation has not been completed for this patient. Objective: Objective Information: T PRBPSpO2 [id number]% Date/Time03/06 20: 20: 20: 20: 20:05 Range(36.6C - 36.6C ) (95 - 95 ) (19 - 19 ) (145 - 145 )/ (82 - 82 ) (91% - 91% ) Pain reported at 03/06 21:30: 10 = Severe Physical Exam Narrative: Physical Exam: General: Well appearing, in no acute distress HEENT: Neck tenderness with flexion, no true Kernig or Brudzinski Skin: No lesions on extremities EYE: EOMI CV: RRR no MRG Lungs: CTA bilateral lungs Abdomen: RUQ TTP without Mckeon's sign, normal BS appreciated Extremity: No pedal edema bilaterally Neuro: AO3, follows commands Psych: Normal mood/affect Recent Lab Results: Results: CBC: 03/06/2021 01:19 \ Hgb / \ 11.2 L / WBC (more content not included)... [facility] 01-17-2021 History of Present illness Narrative This note is in progress. Dictation on: 01/17/2021 4:15 PM by: ROLAND GRANT [[id number]] documented in this encounter [facility] 11-09-2020 History of Present illness Narrative Subjective Patient ID: Andreina Sesay is a 49 y.o. female. HPI The patient was referred for heartburn evaluation. The patient reports issues with heartburn for at least all of her adult like. She has been taking daily medication for at least the past 5-10 years. This helps with symptoms but does not control completely. She has nocturnal symptoms that awaken her from sleep. She notes regurgitation upon awakening. She also has symptoms during the day. She has daily symptoms. Trigger foods include spicy and tomato based but other things also cause and even has symptoms without eating. She experiences burning in the throat and taste changes, substernal burning chest pain, and epigastric pain and burning with abdominal bloating. Patient also inquired about screening colonoscopy. No prior colonoscopy. Patient is asymptomatic at this time, without abdominal complaints or bowel changes. No diarrhea/constipation, no blood/mucus in stools, no melena, no thinning of stools, no anemia known to patient. Maternal grandmother (and her grandmother's two brothers) with family history of colon cancer. 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 Phil Powers TUBAL LIGATION has a current medication list which includes the following prescription(s): albuterol, bupropion, cabergoline, calcium carbonate, fluticasone propionate, ibuprofen, levothyroxine, and pantoprazole. 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 Heats home with gas and has city water. Sleeps with 2-3 pillows. Social Determinants of Health Financial Resource Strain: Difficulty of Paying Living Expenses: Food Insecurity: Worried About Running Out of Food in the Last Year: Ran Out of Food in the Last Year: Transportation Needs: Lack of Transportation (Medical): Lack of Transportation (Non-Medical): Physical Activity: Days of Exercise per Week: Minutes of Exercise per Session: Stress: Feeling of Stress : Social Connections: Frequency of Communication with Friends and Family: Frequency of Social Gatherings with Friends and Family: Attends Orthodox Services: Active Member of Clubs or Organizations: Attends Club or Organization Meetings: Marital Status: Family History Problem Relation Age of Onset Rheum arthritis Mother Hypertension Mother Emphysema Father COPD Father Hypothyroidism Father Cancer Maternal Grandmother colon Thyroid disease Maternal Grandmother Hypertension Maternal Grandfather Heart disease Paternal Grandfather Heart disease Paternal Uncle Review of Systems Constitutional: Negative for activity change, appetite change, chills, fatigue, fever and unexpected weight change. HENT: Negative for hearing loss, nosebleeds and trouble swallowing. Eyes: Negative for visual disturbance. Respiratory: Negative for cough, shortness of breath, wheezing and stridor. Cardiovascular: Negative for chest pain and leg swelling. Gastrointestinal: Positive for abdominal pain, constipation and nausea. Negative for abdominal distention, blood in stool, diarrhea and vomiting. Endocrine: Negative for cold intolerance and heat intolerance. Genitourinary: Negative for difficulty urinating, frequency, hematuria and urgency. Musculoskeletal: Positive for joint swelling. Negative for arthralgias. Skin: Negative for rash and wound. Allergic/Immunologic: Negative for environmental allergies and food allergies. Neurological: Positive for headaches. Negative for seizures, syncope, weakness and numbness. Hematological: Negative for adenopathy. Does not bruise/bleed easily. Psychiatric/Behavioral: Negative for agitation and dysphoric mood. Objective Physical Exam Vitals reviewed. Constitutional: General: She is not in acute distress. Appearance: Normal appearance. She is well-developed. She is not diaphoretic. HENT: Head: Normocephalic and atraumatic. Right Ear: External ear normal. Left Ear: External ear normal. Nose: Nose normal. Eyes: Pupils: Pupils are equal, round, and reactive to light. Neck: Thyroid: No thyromegaly. Vascular: No JVD. Trachea: No tracheal deviation. Cardiovascular: Rate and Rhythm: Normal rate and regular rhythm. Heart sounds: Normal heart sounds. Pulmonary: Effort: Pulmonary effort is normal. No respiratory distress. Breath sounds: Normal breath sounds. Abdominal: General: Bowel sounds are normal. There is no distension. Palpations: Abdomen is soft. There is no mass. Tenderness: There is no abdominal tenderness. There is no guarding or rebound. Musculoskeletal: General: Normal range of motion. Cervical back: Normal range of motion. Skin: General: Skin is warm and dry. Neurological: General: No focal deficit present. Mental Status: She is alert. Mental status is at baseline. Cranial Nerves: No cranial nerve deficit. Psychiatric: Behavior: Behavior normal. Assessment/Plan: Diagnoses and all orders for this visit: Heartburn - Ambulatory referral to General Surgery - Case Request Operating Room: ESOPHAGOGASTRODUODENOSCOPY WITH BIOPSY AND GONZALEZ CHIP PLACEMENT, ESOPHAGEAL MANOMETRY, COLONOSCOPY Special screening for malignant neoplasms, colon - Case Request Operating Room: ESOPHAGOGASTRODUODENOSCOPY WITH BIOPSY AND GONZALEZ CHIP PLACEMENT, ESOPHAGEAL MANOMETRY, COLONOSCOPY Other orders - Height and weight; Standing - Vital signs; Standing - Insert peripheral IV; Standing - lactated Ringers infusion Esophageal manometry, EGD with gonzalez chip placement. Details of procedure, rationale, R/B/A discussed with patient and they are agreeable to proceed Colonoscopy. Discussed details of procedure, rationale for procedure including cancer and polyp detection and removal, and potential R/B including bleeding and perforation Vaccinated for covid documented in this encounter [facility] 10-25-2020 History of Present illness Narrative PFT SCHEDULED W/PATIENT IN OFFICE Images from the original note were not included. Subjective Patient ID: Andreina Sesay is a 49 y.o. female. Patient is here today for a routine interval visit. Reviewed all labs with patient. HLD/Prediabetes: Talked with patient at length about current lab work including elevated lipid panel and A1c of 5.8. Patient does not want to start medications at this time and would like to try lifestyle changes.Talked with patient at length about making healthy food choices. Encouraged patient to cut out all processed foods and sugars and increase activity level. Lab Results Component Value Date CHOL 220 (H) 10/14/2020 Lab Results Component Value Date HDL 52 10/14/2020 Lab Results Component Value Date LDLCALC 140 (H) 10/14/2020 Lab Results Component Value Date TRIG 141 10/14/2020 Lab Results Component Value Date CHOLHDL 4.2 10/14/2020 GERD: Patient states that she has struggled with GERD for her entire adult life. She has been medicated for 6-7 years, restarted on Protonix at last visit and symptoms resolved. Symptoms without medication include; burning in her stomach and esophagus and water brash. She has never had an EGD. Talked with patient about risks with longstanding acid reflux. Patient is willing to be seen by specialist for evaluation. Chronic bronchitis: Patient has a 32 pack year smoking history, no formal diagnosis of COPD but has not had PFT's. The following were reviewed and updated as appropriate for today's visit: allergies, current medications, past family history, past medical history, past social history, past surgical history and problem list. Patient's Medications New Prescriptions No medications on file Previous Medications ALBUTEROL (VENTOLIN HFA) 90 MCG/ACTUATION INHALER Inhale 2 (two) puffs every 4 (four) hours as needed for wheezing or shortness of breath . BUPROPION (WELLBUTRIN XL) 300 MG 24 HR TABLET Take 1 (one) tablet (300 mg total) by mouth daily . CABERGOLINE (DOSTINEX) 0.5 MG TABLET Take 0.5 (one-half) tablet (0.25 mg total) by mouth twice weekly . FLUTICASONE PROPIONATE (FLONASE) 50 MCG/ACTUATION NASAL SPRAY 2 sprays by NOT APPLICABLE route every night at bedtime . LEVOTHYROXINE (SYNTHROID, LEVOTHROID) 75 MCG TABLET Take 1 (one) tablet (75 mcg total) by mouth every morning . PANTOPRAZOLE (PROTONIX) 40 MG TABLET Take 1 (one) tablet (40 mg total) by mouth daily . Modified Medications No medications on file Discontinued Medications LEVOFLOXACIN (LEVAQUIN) 500 MG TABLET Take 1 (one) tablet (500 mg total) by mouth daily . Review of Systems Review of Systems Constitutional: Negative for activity change and fatigue. HENT: Negative for hearing loss. Eyes: Negative for visual disturbance. Respiratory: Positive for cough. Negative for chest tightness, shortness of breath and wheezing. Cardiovascular: Negative for chest pain and palpitations. Gastrointestinal: GERD Musculoskeletal: Positive for arthralgias. Negative for gait problem. Skin: Negative. Psychiatric/Behavioral: Positive for decreased concentration. Negative for agitation. The patient is nervous/anxious. Vitals: 10/25/20 1323 BP: 122/75 BP Location: Left arm Patient Position: Sitting BP Cuff Size: X-large Adult Pulse: 80 Resp: 16 Temp: 98.1 F (36.7 C) TempSrc: Temporal SpO2: 95% Weight: 72.1 kg (159 lb) Height: 5' Body mass index is 31.05 kg/m . Physical Exam Physical Exam Constitutional: Appearance: She is well-developed. She is obese. HENT: Right Ear: External ear normal. Left Ear: External ear normal. Nose: Nose normal. Eyes: General: Lids are normal. Conjunctiva/sclera: Conjunctivae normal. Cardiovascular: Rate and Rhythm: Normal rate and regular rhythm. Heart sounds: Normal heart sounds. No murmur heard. Pulmonary: Effort: Pulmonary effort is normal. Breath sounds: Normal breath sounds. Musculoskeletal: Cervical back: Normal range of motion. Comments: Normal gait Skin: General: Skin is warm and dry. Neurological: Mental Status: She is alert and oriented to person, place, and time. GCS: GCS eye subscore is 4. GCS verbal subscore is 5. GCS motor subscore is 6. Psychiatric: Speech: Speech normal. Behavior: Behavior normal. OARRS/NARxCHECK Report Received and Assessed: No data found Date controlled substance agreement signed: No data found Date of last drug screen: No data found Functional Assessment: No data found Assessment/Plan Problem List Items Addressed This Visit Digestive Acid reflux Relevant Orders Ambulatory referral to General Surgery Endocrine Hyperprolactinemia (HCC) Continue your Dostinex and follow with Endocrinology. Other Hyperlipidemia LDL goal <100 - Primary Eat meat, vegetables, nuts and seeds, some fruit, very little starch and absolutely no sugar. If you can grow it or kill it, then that's what you should be eating..... Chicken, turkey, fish pork, beef, ALL vegetables and fruit. If it is processed or you can not pronounce the ingredients, do not eat it! Shop the outside perimeter of the grocery store. 1/2 of your food should be vegetables. Listen to your body, if you are hungry all the time you may need to increase your intake of healthy veggies and small healthy snacks. Eat whole, healthy foods and you won't need to count calories. Increase your activity level; the more you move your body the healthier you will be and the better you will feel! 1-2 # per week is a healthy weight loss. Prediabetes Work on eating healthy and being active. Will recheck in 6 months to see if you can make positive lifestyle changes and stay off medication. Other Visit Diagnoses Chronic bronchitis, unspecified chronic bronchitis type (HCC) Relevant Orders PFT spirometry pre and post bronchodilator Preventative Goals Goals Be Tobacco Free Using tobacco doubles your risk of heart disease and can damage blood vessels in your legs. For any new medications prescribed today, patient was educated about indications for the medication, how to take the medication and potential side effects of the medications. Darleen Naylor CNP documented in this encounter [facility] 10-25-2020 Instructions Darleen Naylor CNP - 10/25/2020 1:54 PM EDT Problem List Items Addressed This Visit Digestive Acid reflux Relevant Orders Ambulatory referral to General Surgery Endocrine Hyperprolactinemia (HCC) Continue your Dostinex and follow with Endocrinology. Other Hyperlipidemia LDL goal <100 - Primary Eat meat, vegetables, nuts and seeds, some fruit, very little starch and absolutely no sugar. If you can grow it or kill it, then that's what you should be eating..... Chicken, turkey, fish pork, beef, ALL vegetables and fruit. If it is processed or you can not pronounce the ingredients, do not eat it! Shop the outside perimeter of the grocery store. 1/2 of your food should be vegetables. Listen to your body, if you are hungry all the time you may need to increase your intake of healthy veggies and small healthy snacks. Eat whole, healthy foods and you won't need to count calories. Increase your activity level; the more you move your body the healthier you will be and the better you will feel! 1-2 # per week is a healthy weight loss. Prediabetes Work on eating healthy and being active. Will recheck in 6 months to see if you can make positive lifestyle changes and stay off medication. Other Visit Diagnoses Chronic bronchitis, unspecified chronic bronchitis type (HCC) Relevant Orders PFT spirometry pre and post bronchodilator If any referrals were placed at the time of your visit please allow 2 weeks for processing. If you haven't heard from anyone within 2 weeks please contact my office so we can look into the status of your referral. If you were given any labs today please ensure they are completed according to the directions given. Once labs are completed please allow 1-2 weeks for us to receive the results, review them, and let you know what steps, if any, are needed next. If you haven't heard from us after that please call to inquire. If labs were ordered to be done PRIOR to your next visit we will discuss the results at the time of your office visit. If any procedures or imaging studies were ordered that must be prior authorized please give us 2 weeks to get them approved. Once approved someone should call you to schedule them or give you a date and time that they were scheduled for. If you haven't heard anything within 2 weeks of the office visit please call the office so we can look into their status. Customer Service/Billing Questions: [phone] MyChart Assistance: [phone] or [phone] Financial Assistance: [phone] or [phone] documented in this encounter [facility] 10-25-2020 Miscellaneous Notes Associated Problem(s): Hyperprolactinemia (HCC) Continue your Dostinex and follow with Endocrinology. Associated Problem(s): Prediabetes Work on eating healthy and being active. Will recheck in 6 months to see if you can make positive lifestyle changes and stay off medication. Associated Problem(s): Hyperlipidemia LDL goal <100 Eat meat, vegetables, nuts and seeds, some fruit, very little starch and absolutely no sugar. If you can grow it or kill it, then that's what you should be eating..... Chicken, turkey, fish pork, beef, ALL vegetables and fruit. If it is processed or you can not pronounce the ingredients, do not eat it! Shop the outside perimeter of the grocery store. 1/2 of your food should be vegetables. Listen to your body, if you are hungry all the time you may need to increase your intake of healthy veggies and small healthy snacks. Eat whole, healthy foods and you won't need to count calories. Increase your activity level; the more you move your body the healthier you will be and the better you will feel! 1-2 # per week is a healthy weight loss. documented in this encounter [facility] documented as of this encounter (statuses as of 03/08/2022) [facility] Community acquired pneumonia, unspecified laterality [facility] Diagnosis Hyperlipidemia LDL goal <100- Primary Other and unspecified hyperlipidemia Prediabetes Other abnormal glucose Gastroesophageal reflux disease, unspecified whether esophagitis present Hyperprolactinemia (HCC) Other and unspecified anterior pituitary hyperfunction Chronic bronchitis, unspecified chronic bronchitis type (HCC) [facility] Diagnosis Chronic bronchitis, unspecified chronic bronchitis type (HCC) [facility] Diagnosis Heartburn- Primary Special screening for malignant neoplasms, colon Acid reflux Esophageal reflux Special screening for malignant neoplasms, colon Heartburn Special screening for malignant neoplasms, colon [facility] Diagnosis Acute shoulder pain due to trauma, left- Primary [facility] Diagnosis Yeast infection- Primary Intractable vomiting with nausea, unspecified vomiting type Babesiosis, unspecified Cytomegalovirus infection, unspecified cytomegaloviral infection type (HCC) [facility] Diagnosis Goiter- Primary Goiter, unspecified Hyperprolactinemia (HCC) Other and unspecified anterior pituitary hyperfunction Pituitary adenoma (HCC) Benign neoplasm of pituitary gland and craniopharyngeal duct (pouch) Juarez's thyroiditis Chronic lymphocytic thyroiditis [facility]* Diagnosis Cough- Primary Current smoker Encounter for immunization Seasonal depression (HCC) Rheumatoid arthritis, involving unspecified site, unspecified whether rheumatoid factor present (HCC) Pituitary adenoma (HCC) Benign neoplasm of pituitary gland and craniopharyngeal duct (pouch) [facility] Diagnosis Cough [facility] Diagnosis Herpes labialis- Primary Herpes simplex without mention of complication Juarez's thyroiditis Chronic lymphocytic thyroiditis [facility] Diagnosis COVID-19- Primary [facility]* Diagnosis Anxiety and depression- Primary [facility] Diagnosis Hyperprolactinemia (HCC)- Primary 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 Chronic lymphocytic thyroiditis [facility] Diagnosis Rheumatoid arthritis, involving unspecified site, unspecified whether rheumatoid factor present (HCC)- Primary De Quervain's tenosynovitis, left Anxiety and depression Hyperlipidemia LDL goal <100 Other and unspecified hyperlipidemia Encounter for screening for malignant neoplasm of breast, unspecified screening modality Hyperprolactinemia (HCC) Other and unspecified anterior pituitary hyperfunction [facility] Diagnosis Acute bacterial sinusitis Acute sinusitis, unspecified [facility] Diagnosis Pituitary adenoma (HCC)- Primary Benign neoplasm of pituitary gland and craniopharyngeal duct (pouch) Anxiety disorder, unspecified type Hypothyroidism, unspecified type documented in this encounter [facility] note* Diagnosis Hyperprolactinemia (HCC)- Primary 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 Chronic lymphocytic [facility]itis [facility] Diagnosis Encounter for screening for malignant neoplasm of breast, unspecified screening modality Seasonal depression (HCC) Arthritis of carpometacarpal (CMC) joint of left thumb Hyperlipidemia, unspecified hyperlipidemia type [facility] Diagnosis Need for vaccination- Primary Need for prophylactic vaccination and inoculation against unspecified single disease [facility] Diagnosis Juarez's thyroiditis Chronic lymphocytic thyroiditis [facility]* Diagnosis Hyperprolactinemia (HCC)- Primary 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 [facility] Name Dates Details Instructions not documented [employer] Phone: Instructions Name Dates Details Instructions not documented Name Dates Details Instructions not documented Name Dates Details Instructions not documented Name Dates Details Instructions not documented Assessments Diagnosis De Quervain's tenosynovitis, left - Primary Hyperprolactinemia (HCC) Other and unspecified anterior pituitary hyperfunction Pituitary adenoma (HCC) Benign neoplasm of pituitary gland and craniopharyngeal duct (pouch) Juarez's thyroiditis Chronic lymphocytic thyroiditis Well adult exam Routine general medical examination at a [facility] care facility Obesity, Class I, BMI 30-34. 9 Gastroesophageal reflux dise ase, esophagitis presence not specified Anxiety and depression Diagnosis Sleep disorder- Primary Unspecified sleep disturbance Gastroesophageal reflux disease, esophagitis presence not specified Anxiety and depression Insomnia, persistent Diagnosis Hyperprolactinemia (HCC)- Primary Other and unspecified anterior pituitary hyperfunction Pituitary adenoma (HCC) Benign neoplasm of pituitary gland and craniopharyngeal duct (pouch) Juarez's thyroiditis Chronic lymphocytic thyroiditis Anxiety and depression Bronchitis Bronchitis, not specified as acute or chronic Summary Purpose Family History Grandparent Name Dates Details Family history of hypertensi on(V17.49, Z82.49) Status:Active Family history of malignant neoplasm of colon(V16.0, Z80.0) Status:Active Family history of thyroid di sease(V18.19, Z83.49) Status:Active Mother Name Dates Details Family history of hypertensi on(V17.49, Z82.49) Status:Active Family history of thyroid di sease(V18.19, Z83.49) Status:Active Grandparent Name Dates Details Family history of hypertensi on(V17.49, Z82.49) Status:Active Family history of malignant neoplasm of colon(V16.0, Z80.0) Status:Active Family history of thyroid di sease(V18.19, Z83.49) Status:Active Mother Name Dates Details Family history of hypertensi on(V17.49, Z82.49) Status:Active Family history of thyroid di sease(V18.19, Z83.49) Status:Active Grandparent Name Dates Details Family history of hypertensi on(V17.49, Z82.49) Status:Active Family history of malignant neoplasm of colon(V16.0, Z80.0) Status:Active Family history of thyroid di sease(V18.19, Z83.49) Status:Active Mother Name Dates Details Family history of hypertensi on(V17.49, Z82.49) Status:Active Family history of thyroid di sease(V18.19, Z83.49) Status:Active Grandparent Name Dates Details Family history of hypertensi on(V17.49, Z82.49) Status:Active Family history of malignant neoplasm of colon(V16.0, Z80.0) Status:Active Family history of thyroid di sease(V18.19, Z83.49) Status:Active Mother Name Dates Details Family history of hypertensi on(V17.49, Z82.49) Status:Active Family history of thyroid di sease(V18.19, Z83.49) Status:Active Advance Directives Documents on File Type Date Recorded 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 Advance Directives and Livin g Will 10/14/2020 3:17 PM Documents on File Type Date Recorded 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 Advance Directives and Livin g Will 10/14/2020 3:17 PM Documents on File Type Date Recorded 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 Advance Directives and Livin g Will 10/27/2020 2:01 PM Documents on File Type Date Recorded 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 Advance Directives and Livin g Will 12/28/2020 2:47 PM Advance Directives and Livin g Will 11/24/2020 8:09 AM Documents on File Type Date Recorded 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 Advance Directives and Livin g Will 02/17/2021 4:28 PM Advance Directives and Livin g Will 11/24/2020 8:09 AM Documents on File Type Date Recorded 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 female. Chief Complaint Patient presents with [place] Anxiety Palpitations HPI interval visit: Gastroesophageal reflux disease: Patient with a history of gastroesophageal reflux disease since 2017. Her current symptoms are abdominal bloating, heartburn, nocturnal burning, upper abdominal discomfort, symptoms primarily relate to meals, and lying down after meals. Current medications are Zantac. Patient is never had an EGD. Overall her condition is stable but still symptomatic. It is no worse but is not significantly improved with the Zantac. She denies any melena or acholic stools. She denies any food getting stuck.. Anxiety depression: Patient still has a sensation of anxiety all the time. He does not interruptingor limiting her ability to complete her day however it is affecting her. She has noticed it is worse when she is tired. She also is no states which tends to be more involved in certain times of the year. We discussed the role of seasonal affective disorder however it is significant particularly people who are marginal with regards to vitamin D deficiency. Have suggested that her weight also places her risk for that. Would like to make sure she is taking a supplement. Addition we will consider adding trazodone and/or Vistaril as needed. Insomnia: Patient has both late sleep onset as well as frequent night awakening. For that would like to consider the combination of Vistaril and/or trazodone. We will start the trazodone now. Becausebeen helpful to help with interrupted sleep cycle particularly of the geriatric population without much risk. If we are still having problems with sleep onset will then add the Vistaril immediately prior to bedtime and about an hour before desired sleep onset. Allergies Allergen Reactions Penicillins Rash The following portions of the patient's history were reviewed and updated as appropriate: allergies, current medications, past family history, past medical history, past social history, past surgicalhistory and problem list. Review of Systems Constitutional: Positive for unexpected weight change. Negative for activity change, appetite change, chills, diaphoresis and fever. HENT: Positive for tinnitus. Negative for congestion, ear discharge, ear pain, hearing loss, postnasal drip, sinus pressure and trouble swallowing. Eyes: Negative for pain and visual disturbance. Respiratory: Negative for cough and wheezing. Cardiovascular: Negative for chest pain and palpitations. Gastrointestinal: Negative for abdominal pain, constipation and diarrhea. Endocrine: Positive for heat intolerance. Negative for cold intolerance. Genitourinary: Negative for dysuria, pelvic pain, vaginal bleeding and vaginal discharge. Musculoskeletal: Negative for arthralgias, back pain and joint swelling. Skin: Negative for color change and rash. Allergic/Immunologic: Negative for environmental allergies. Neurological: Negative for dizziness, seizures, syncope and headaches. Hematological: Negative for adenopathy. Does not bruise/bleed easily. Psychiatric/Behavioral: Positive for dysphoric mood and sleep disturbance. The patient is nervous/anxious. Objective Vitals: 02/07/18 1025 BP: 122/78 BP Location: Left arm Patient Position: Sitting BP Cuff Size: Adult Pulse: 92 Resp: 16 Temp: 98 F (36.7 C) TempSrc: Oral SpO2: 98% Weight: 70.3 kg (155 lb) Height: 5' Estimated body mass index is 30.27 kg/m as calculated from the following: Height as of this encounter: 5'. Weight as of this encounter: 70.3 kg (155 lb). Physical Exam Constitutional: She is oriented to person, place, and time. She appears well- developed and well-nourished. No distress. HENT: Head: Normocephalic and atraumatic. Right Ear: External ear normal. Left Ear: External ear normal. Mouth/Throat: No oropharyngeal exudate. Eyes: Pupils are equal, round, and reactive to light. EOM are normal. Right eye exhibits no discharge. Left eye exhibits no discharge. No scleral icterus. Neck: Normal range of motion. Neck supple. No JVD present. No tracheal deviation present. No thyromegaly present. Cardiovascular: Normal rate, regular rhythm and normal heart sounds. No murmur heard. Pulmonary/Chest: Effort normal and breath sounds normal. No stridor. Inspiratory to expiratory is 2:3 with a subtle decrease in basilar lung sounds. Abdominal: Soft. There is no tenderness. Musculoskeletal: She exhibits no edema or tenderness. Lymphadenopathy: She has no cervical adenopathy. Neurological: She is alert and oriented to person, place, and time. No cranial nerve deficit. Skin: Skin is warm and dry. No rash noted. Psychiatric: She has a normal mood and affect. Her behavior is normal. Judgment and thought contentnormal. Assessment/Plan: Problem List Items Addressed This Visit Digestive Acid reflux Will try Pantoprazole since the Zantac was ineffective. Relevant Medications pantoprazole (PROTONIX) 40 MG tablet Other Anxiety and depression Suggest starting the Vitamin D now if not already on. Suggest also the need for protection of adequate sleep quantity and quality. No one reminds healthy mentally without adequate sleep. Suggest attention to sleep hygiene, consider the use of Vistaril 25 mg tablet 1/2 -1 hour prior to bedtime and if still having frequent interruption the use of low dose Trazadone. Insomnia, persistent Suggest the Vistaril, as well as potentially Trazadone. Sleep disorder - Primary Will start the Vistaril and then add the Trazodone if needed. For any new medications prescribed today, patient was educated about indications for the medication, how to take the medication and potential side effects of the medications. in this encounter* Darleen Naylor CNP - 08/11/2018 7:36 PM EDT Subjective Patient ID: Andreina Sesay is a 47 y.o. female. Patient is here today for routine visit, she needs refills on all of her medications. She has been treated for hyperprolactinemia in the past and is currently on Dostinex. She has not been followed by a specialist in the past few years. She is interested in going back to a specialist for follow up. Cough: Patient complains of nasal congestion and productive cough. Symptoms began 2 weeks ago. The cough is with wheezing, chest is painful during coughing, worsening over time and is aggravated by nothing Associated symptoms include:postnasal drip, sputum production and wheezing. Patient does not have new pets. Patient does not have a history of asthma. Patient does not have a history of environmental allergens. Patient has not recent travel. Patient does have a history of smoking. The following portions of the patient's history were reviewed and updated as appropriate: allergies, current medications, past family history, past medical history, past social history, past surgicalhistory and problem list. 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 Phil Powers TUBAL LIGATION Family History Problem Relation Age of Onset Rheum arthritis Mother Hypertension Mother Emphysema Father COPD Father Hypothyroidism Father Cancer Maternal Grandmother colon Thyroid disease Maternal Grandmother Hypertension Maternal Grandfather Heart disease Paternal Grandfather Heart disease Paternal Uncle Social History Tobacco Use Smoking status: Current Every Day Smoker Packs/day: 1.00 Years: 23.00 Pack years: 23.00 Types: Cigarettes Smokeless tobacco: Never Used Tobacco comment: +1 pack a day Substance Use Topics Alcohol use: Yes Alcohol/week: 1.2 - 3.6 oz Types: 2 - 6 Glasses of wine per week Comment: 2-6 glasses a week Drug use: No Medication List Accurate as of 08/08/18 11:59 PM. If you have any questions, ask your nurse or doctor. START taking these medications methylPREDNISolone 4 mg tablet Commonly known as: MEDROL DOSEPACK follow package directions . Started by: Darleen Naylor CNP CONTINUE taking these medications buPROPion 300 MG 24 hr tablet Commonly known as: WELLBUTRIN XL Take 1 (one) tablet (300 mg total) by mouth daily . cabergoline 0.5 mg tablet Commonly known as: DOSTINEX Take 0.5 (one-half) tablet (0.25 mg total) by mouth twice weekly . fluticasone propionate 50 mcg/actuation nasal spray Commonly known as: FLONASE levothyroxine 75 MCG tablet Commonly known as: SYNTHROID, LEVOTHROID Take 1 (one) tablet (75 mcg total) by mouth every morning . multivitamin per tablet Generic drug: multivitamin pantoprazole 40 MG tablet Commonly known as: PROTONIX Take 1 (one) tablet (40 mg total) by mouth daily. Where to Get Your Medications These medications were sent to [facility] - [place] [id number] [address] buPROPion 300 MG 24 hr tablet cabergoline 0.5 mg tablet levothyroxine 75 MCG tablet methylPREDNISolone 4 mg tablet Allergies Allergen Reactions Penicillins Rash Review of Systems Review of Systems Constitutional: Negative for activity change, appetite change, fatigue and unexpected weight change. HENT: Positive for congestion, postnasal drip and rhinorrhea. Negative for hearing loss, sinus pressure, sinus pain and sneezing. Eyes: Negative for photophobia and visual disturbance. Respiratory: Positive for cough, chest tightness, shortness of breath and wheezing. Cardiovascular: Negative for chest pain and palpitations. Gastrointestinal: Negative for constipation, diarrhea, nausea and vomiting. Endocrine: Negative for cold intolerance and heat intolerance. Genitourinary: Negative for dysuria, frequency and urgency. Musculoskeletal: Negative for arthralgias, back pain and myalgias. Skin: Negative. Neurological: Negative for dizziness, light-headedness and headaches. Hematological: Negative. Psychiatric/Behavioral: Negative for dysphoric mood and sleep disturbance. The patient is not nervous/anxious. Vitals: 08/08/18 1709 BP: 128/86 BP Location: Left arm Patient Position: Sitting BP Cuff Size: Adult Pulse: 70 Resp: 18 Temp: 98.1 F (36.7 C) TempSrc: Oral SpO2: 98% Weight: 72.6 kg (160 lb) Height: 5' Body mass index is 31.25 kg/m . Physical Exam Physical Exam Constitutional: She is oriented to person, place, and time. She appears well- developed and well-nourished. HENT: Right Ear: A middle ear effusion is present. Left Ear: A middle ear effusion is present. Nose: Mucosal edema and rhinorrhea present. Right sinus exhibits no maxillary sinus tenderness and no frontal sinus tenderness. Left sinus exhibits no maxillary sinus tenderness and no frontal sinus tenderness. Mouth/Throat: Uvula is midline and mucous membranes are normal. Posterior oropharyngeal erythema present. Cardiovascular: Normal rate, regular rhythm and normal heart sounds. Pulmonary/Chest: Effort normal. She has wheezes. Musculoskeletal: Normal range of motion. Lymphadenopathy: Head (right side): No submandibular and no tonsillar adenopathy present. Head (left side): No submandibular and no tonsillar adenopathy present. Neurological: She is alert and oriented to person, place, and time. Skin: Skin is warm and dry. Psychiatric: She has a normal mood and affect. Her behavior is normal. Assessment/Plan Problem List Items Addressed This Visit Endocrine Juarez's thyroiditis Relevant Medications levothyroxine (SYNTHROID, LEVOTHROID) 75 MCG tablet methylPREDNISolone (MEDROL DOSEPACK) 4 mg tablet Other Relevant Orders Ambulatory referral to Endocrinology Hyperprolactinemia ([facility]) - Primary I am going to refill the Dostinex for 60 days with the intentions of getting you into Dr. Aquino office. I am willing to follow you after she decides if this is an appropriate plan. Relevant Medications cabergoline (DOSTINEX) 0.5 mg tablet Other Relevant Orders Ambulatory referral to Endocrinology Pituitary adenoma ([facility]) Relevant Orders Ambulatory referral to Endocrinology Respiratory Bronchitis You have a nasty chest cold. I want you to rest, rest, rest! Lots of fluids! I am going to start you on a medrol dose pack to help with the cough and wheezing. Usually the worst days are days 3-5, then you start improving every day. Cough can last months after you feel better. Hot Toddies for the cough! Relevant Medications methylPREDNISolone (MEDROL DOSEPACK) 4 mg tablet Other Anxiety and depression Relevant Medications buPROPion (WELLBUTRIN XL) 300 MG 24 hr tablet No data recorded Goals Be Tobacco Free Using tobacco doubles your risk of heart disease and can damage blood vessels in your legs. If any referrals were placed at today's visit the patient was instructed to call the office if theyhavn't heard anything about the referral within 2 weeks of today's visit. For any new medications prescribed today, patient was educated about indications for the medication, how to take the medication and potential side effects of the medications. documented in this encounter Reason for Referral Status Reason Specialty Diagnoses / Procedures Referred By Contact Referred To Contact Authorized Patient Preference Endocrinology/M etabolism Diagnoses Hyperprolactinem ia (HCC) Pituitary adenoma (HCC) Juarez's thyroiditis Darleen aNylor CNP [address] [place] [address] Nneka Aquino MD [address] [place] [address] Status Reason Specialty Diagnoses / Procedures Referred By Contact Referred To Contact Authorized General Surgery / Heartburn Diagnoses Gastroesophageal reflux disease, unspecified whether esophagitis present Darleen Naylor CNP [address] [place] [address] René High MD [address] [facility] [place] [id number] Specialty Diagnoses / Procedures Referred By Contac t Referred To Contact Radiology Diagnoses Goiter Procedures US Thyroid Only Marge Arndt MD [address] [place] [phone] Referral ID Status Reason Start Date Expiration Date V isits Requested Visits Authorized [id number] Pending Review 03/22/2021 03/22/2022 1 1 Specialty Diagnoses / Procedures Referred By Contac t Referred To Contact Diagnoses Encounter for screening for malignant neoplasm of breast, unspecified screening modality Procedures Mammography Screening Tito Bilateral Tania Judge MD [address] [place] [phone] Referral ID Status Reason Start Date Expiration Date V isits Requested Visits Authorized [id number] Authorized 01/19/2022 01/19/2023 1 1 Specialty Diagnoses / Procedures Referred By Contac t Referred To Contact Diagnoses Encounter for screening for malignant neoplasm of breast, unspecified screening modality Procedures CT Lung Cancer Screening Tania Judge MD [address] [address] [place] [phone] Phone: [phone] Referral ID Status Reason Start Date Expiration Date Visits Requested Visits Authorized [id number] New Request Patient Preference 3 03/13/2024 1 1 Specialty Diagnoses / Procedures Referred By Contac t Referred To Contact Radiology Diagnoses Screening for malignant neoplasm of respiratory organ Procedures Mammography Screening Tito Bilateral Tania Judge MD [address] [place] [address] [place] [address] Referral ID Status Reason Start Date Expiration Date V isits Requested Visits Authorized [id number] Authorized 03/14/2023 03/13/2024 1 1 Specialty Diagnoses / Procedures Referred By [place] t Referred To Contact Diagnoses Arthritis of carpometacarpal (CMC) joint of left thumb Tania Judge MD [address] [place] [phone] PL[facility] OF SERVICE NOT IN SYSTEM Referral ID Status Reason Start Date Expiration Date Visits Requested Visits Authorized [id number] Authorized Specialty Services Required/Pat ient's Best Interest 3 03/13/2024 1 1 Scheduling Instructions Please fax to in [place] Medications Administered Section Active Administered Medications - up to 3 most recent administrations Medication Order MAR Action Action Date Dose Rate Site PHENYLephrine 2.5 % 1 Drop (AK-DILATE, EDWARD-SYNEPHRINE) 1 Drop, BOTH EYES, DIRECTED, Starting on Sun03/08/22 at 0900, Until Sun03/08/22 at 2058, Administer for dilation PROTECT FROM LIGHT Given 03/08/2022 9:00 AM EST 1 Drop proparacaine 0.5 % 1 Drop (ALCAINE) 1 Drop, BOTH EYES, DIRECTED, Starting on Sun03/08/22 at 0900, Until Sun03/08/22 at 2058, Administer for pneumo tonometry, tonopen tonometry, or pachymetry. In the event of a proparacaine shortage, administer tetracaine 0.5% ophthalmic drops 1 drop in the left eye as directed for pneumo tonometry, tonopen tonometry, or pachymetry Given 03/08/2022 9:00 AM EST 1 Drop tropicamide 1 % 1 Drop (MYDRIACYL) 1 Drop, BOTH EYES, DIRECTED, Starting on Sun03/08/22 at 0900, Until Sun03/08/22 at 2058, Administer for dilation Given 03/08/2022 9:00 AM EST 1 Drop Additional Source Comments Assessment & Plan Note - Ritesh Osei MD - 07/30/2017 10:33 AM EDTAssessment & Plan Note - Ritesh Osei MD - 07/30/2017 10:29 AM EDT Miscellaneous Notes (unrecog nized section and content) Associated Problem(s): Obesity, Class I, BMI 30-34.9 Calorie counting is the basis for all weight loss. Typically weigh or measure everything that you place in your mouth. Pay attention to those things that you think are free. Include the calories associated with anything you drink as well. Most that you can buy is required by law to have information on it which breaks down the caloric values for serving size. Look at the serving size and then the weight or measure of that serving size is how you calculate the calories. Try to get over half of your daily calories in the first half of the day Need to find the time for exercise. Activity is great but exercise is activity with a heart rate into the target Zone. Consider calorie counting. But weight loss is minimal without exercise since the body with turn down the BMI or thermostat over time. Exercise allows you to see the benefit of calorie control. Maximum Heart rate or MHR is defined by 220 - age. Then target heart rate or THR is 65-85% of MHR. Need to allow warmup slowly over 5- 10 minute to prevent going too fast to reach THR. Then exercise interval at THR and allow cool down until at least mcc back to the pre exercise hear rate. Therefor if resting heart rate was 70 and your target heart rate was 120. You need to keep moving and work the muscles until you heart rate is below 95 beats per minute. This reduces cramping and the risk of cardiac irritability post exercise. Most weight loss can be obtained best by cycling your calories. By counting the calories and then setting your intake at the minimum needs to maintain your lean body mass you conventional body not to turn down its basal metabolic rate. 80% or more of your total caloric needs are burned due to your basic metabolic rate. So tell your body that you are are dieting and allowing it to turn down your basal metabolic rate sabotages your ability to lose weight. The way to do this and still lose weight his first start a diet at your minimum needs calculated by year estimated lean body mass. Then the first 4 days of every week set your caloric intake to 300-400 aparna per day less. The last 3 days of the week your back to the minimum. This will stop your body from turning down the basal metabolic rate. More than 4 days below the basic minium will have your body trending down how you burn calories. 3500 aparna equals 1 pound and 150 aparna over 30 days below your needs will result in 1-1/2 pounds per month of weight loss or almost 20 pounds per year. Associated Problem(s): Acid reflux Can increase the Famotidine to twice a day if needed. Associated Problem(s): Well adult exam Will repeat the interval lab work today Associated Problem(s): Juarez's thyroiditis Will repeat interval TSH Associated Problem(s): Hyperprolactinemia (HCC) Will check and interval prolactin level. Associated Problem(s): De Quervain's tenosynovitis, left Will write for a short course of prednisone as well as referral to [facility] this encounter Associated Problem(s): Sleep disorder Will start the Vistaril and then add the Trazodone if needed. Associated Problem(s): Insomnia, persistent Suggest the Vistaril, as well as potentially Trazadone. Associated Problem(s): Anxiety and depression Suggest starting the Vitamin D now if not already on. Suggest also the need for protection of adequate sleep quantity and quality. No one reminds healthy mentally without adequate sleep. Suggest attention to sleep hygiene, consider the use of Vistaril 25 mg tablet 1/2 -1 hour prior to bedtime and if still having frequent interruption the use of low dose Trazadone. Associated Problem(s): Acid reflux Will try Pantoprazole since the Zantac was ineffective. in this encounter Associated Problem(s): Bronchitis You have a nasty chest cold. I want you to rest, rest, rest! Lots of fluids! I am going to start you on a medrol dose pack to help with the cough and wheezing. Usually the worst days are days 3-5, then you start improving every day. Cough can last months after you feel better. Hot Toddies for the cough! Associated Problem(s): Hyperprolactinemia (HCC) I am going to refill the Dostinex for 60 days with the intentions of getting you into Dr. Aquino office. I am willing to follow you after she decides if this is an appropriate plan. documented in this encounter INFORMATION SOURCE (unrecogn ized section and content) DATE CREATED AUTHOR AUTHOR'S ORGANIZ ATION 10/24/2017 [facility] DATE CREATED AUTHOR AUTHOR'S ORGANIZ ATION 01/15/[address] [facility] DATE CREATED AUTHOR AUTHOR'S ORGANIZ ATION 01/26/2020 [employer] DATE CREATED AUTHOR AUTHOR'S ORGANIZ ATION 04/07/2020 [facility] DATE CREATED AUTHOR AUTHOR'S ORGANIZ ATION 03/28/2021 [facility] DATE CREATED AUTHOR AUTHOR'S ORGANIZ ATION 01/29/2022 [facility] DATE CREATED AUTHOR AUTHOR'S ORGANIZ ATION 03/08/2022 [facility] DATE CREATED AUTHOR AUTHOR'S ORGANIZ ATION 04/12/2022 [facility] DATE CREATED AUTHOR AUTHOR'S ORGANIZ ATION 04/12/2022 [facility] DATE CREATED AUTHOR AUTHOR'S ORGANIZ ATION 04/20/2022 [facility] DATE CREATED AUTHOR AUTHOR'S ORGANIZ ATION 05/18/[address] [facility] DATE CREATED AUTHOR AUTHOR'S ORGANIZ ATION 05/02/2023 [facility] Reason for Visit (unrecogniz ed section and content) Reason Comments Hypothyroidism Gastroesophageal Reflux Medication Refill Otalgia B/L > week Sinusitis > 1 week sore throat , cough, nasal drainage, feverish, blisters under nose Reason Comments Follow-up 2 week fu review lab s Gastroesophageal Reflux bowel issues Reason Comments Consult heartburn Status Reason Specialty Diagnoses / Procedures Referred By Contact Referred To Contact Closed General Surgery / Heartburn Diagnoses Gastroesophageal reflux disease, unspecified whether esophagitis present SpringDarleen CNP [address] [place] [address] René High MD [facility] [place] [address] Reason Comments Pain Specialty Diagnoses / Procedures Referred By Contact Referred To Contact Endocrinology/Metabolism / Endocrinology Diagnoses Hyperprolactinemia (HCC) Pituitary adenoma (HCC) Juarez's thyroiditis SpringDarleen CNP [address] [place] [address] Marge Arndt MD [address] [place] [address] Referral ID Status Reason Start Date Expiration Date V isits Requested Visits Authorized [id number] Pending Review 10/14/2020 10/14/2021 1 1 Reason Comments Follow-up 1 WEEK Reason Comments Other 4 weeks f/u Reason Onset Date Comments Medication Refill 10/19/2021 Reason Comments Thyroid Problem Reason Comments Follow-up Former C Spring pt-P ain in both hands (has RA)Flu Shot, Prevnar? Reason Comments Blurred Vision Both Eyes Difficulty Reading Both Eyes Diplopia Reason Comments Annual Exam No papFlu shot Reason Comments Immunizations Reason Onset Date Comments Medication Refill 05/08/2023 Care Teams (unrecognized sec tion and content) Physical Ther Relationship Specialty Start Date End Date Spring, Darleen Mane CNP [address] [address] PCP - General Nurse Practitioner 12/28/20spring, Darleen Mane CNP [address] [address] Nurse Practitioner 12/28/20 Cyrus Kaiser MD [address] [place] [phone] Consulting Physician Endocrinology/[place] m 10/12/16 Physical Ther Relationship Specialty Start Date End Date Spring, Darleen Mane CNP [address] [address] PCP - General Nurse Practitioner 12/28/20spring, Darleen Mane CNP [address] [address] Nurse Practitioner 12/28/20 Cyrus Kaiser MD [address] [place] [phone] Consulting Physician Endocrinology/[place] m 10/12/16 Physical Ther Relationship Specialty Start Date End Date Spring, Darleen Mane CNP [address] [address] PCP - General Nurse Practitioner 12/28/20spring, Darleen Mane CNP [address] [address] Nurse Practitioner 12/28/20 Cyrus Kaiser MD [address] [place] [phone] Consulting Physician Endocrinology/[place] m 10/12/16 Physical Ther Relationship Specialty Start Date End Date Spring, Darleen Mane CNP [address] [address] PCP - General Nurse Practitioner 12/28/20spring, Darleen Mane CNP [address] [address] Nurse Practitioner 12/28/20 Cyrus Kaiser MD [address] [place] [address] Consulting Physician Endocrinology/[place] m 10/12/16 Physical Ther Relationship Specialty Start Date End Date Spring, Darleen Mane CNP [address] [address] PCP - General Nurse Practitioner 12/28/20spring, Darleen Mane CNP [address] [address] Nurse Practitioner 12/28/20 Cyrus Kaiser MD [address] [place] [phone] Consulting Physician Endocrinology/[place] m 10/12/16 Physical Ther Relationship Specialty Start Date End Date Spring, Darleen Mane CNP [address] [address] PCP - General Nurse Practitioner 12/28/20spring, Darleen Mane CNP [address] [address] Nurse Practitioner 12/28/20 Cyrus Kaiser MD [address] [place] [phone] Consulting Physician Endocrinology/[place] m 10/12/16 Physical Ther Relationship Specialty Start Date End Date Tania Judge MD [address] [address] PCP - General Family Medicine 10/19/21 Darleen Naylor CNP [address] [address] Nurse Practitioner 12/28/20 Cyrus Kaiser MD [address] [place] [phone] Consulting Physician Endocrinology/[place] m 10/12/16 Physical Ther Relationship Specialty Start Date End Date SpringDarleen CNP [address] [address] PCP - General Nurse Practitioner 12/28/20 10/18/21 Darleen Naylor CNP [address] [address] Nurse Practitioner 12/28/20 Cyrus Kaiser MD [facility] [place] [phone] Consulting Physician Endocrinology/[place] m 10/12/16 Physical Ther Relationship Specialty Start Date End Date Tania Judge MD [address] [address] PCP - General Family Medicine 10/19/21 Darleen Naylor 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 [address] [address] Nurse Practitioner 12/28/20 Cyrus Kaiser MD [address] [place] [phone] Consulting Physician Endocrinology/[place] m 10/12/16 Physical Ther Relationship Specialty Start Date End Date Tania Judge MD [address] [address] PCP - General Family Medicine 10/19/21 Darleen Naylor, ROGELIO [address] [address] Nurse Practitioner 12/28/20 Cyrus Kaiser MD [address] [place] [phone] Consulting Physician Endocrinology/[place] m 10/12/16 Physical Ther Relationship Specialty Start Date End Date Tania Judge MD [address] [address] PCP - General Primary Care 03/08/22 Physical Ther Relationship Specialty Start Date End Date Tania Judge MD [address] [address] PCP - General Family Medicine 10/19/21 Darleen Naylor CNP [facility] [address] [address] Nurse Practitioner 12/28/20 Cyrus Kaiser MD [address] [place] [phone] Consulting Physician Endocrinology/[place] m 10/12/16 Physical Ther Relationship Specialty Start Date End Date Tania Judge MD [facility] [address] [address] PCP - General Family Medicine 10/19/21 Tania Judge MD [address] [place] [address] PCP - [place] Attributed Provider - [facility] 05/31/19 04/29/50 Darleen Naylor 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 [facility] [address] [address] Nurse Practitioner 12/28/20 Cyrus Kaiser MD [address] [place] [address] Road [address] [place] [address] Consulting Physician Endocrinology/[place] sm 10/12/16 Physical Ther Relationship Specialty Start Date End Date Tania Judge MD [facility] [address] [address] PCP - General Family Medicine 10/19/21 Tania Judge MD [facility] [address] [address] PCP - [place] Attributed Provider - [facility] 05/31/19 04/29/50 Darleen Naylor CNP [facility] [address] [address] Nurse Practitioner 12/28/20 Cyrus Kaiser MD [address] [place] [address] [address] Consulting Physician Endocrinology/[place] 10/12/16 Physical Ther Relationship Specialty Start Date End Date Tania Judge MD [facility] [address] [address] PCP - General Family Medicine 10/19/21 Tania Judge MD [address] [address] PCP - [place] Attributed Provider - [facility] 05/31/19 04/29/50 Darleen Naylor CNP [address] [address] Nurse Practitioner 12/28/20 Cyrus Kaiser MD [address] [place] [address] Consulting Physician Endocrinology/[place] sm 10/12/16 Source Comments (unrecognize d section and content) In the event this informatio n is protected by the Federal Confidentiality of Alcohol and Drug Abuse Patient Records regulations: The Federal rules restrict any use of the information to criminally investigate or prosecute any alcohol or drug abuse patient.[facility] FOR RECORDS PERTAINING TO PATIENTS WHO ARE OR HAVE BEEN ENROLLED IN A CHEMICAL DEPENDENCY/SUBSTANCEABUSE PROGRAM, SOME INFORMATION MAY BE OMITTED. This clinical summary was aggregated from multiple sources. Caution should be exercised in using it in the provision of clinical care. This summary normalizes information from multiple sources, and as a consequence, information in this document may materially change the coding, format and clinical context of patient data. In addition, data may be omitted in some cases. CLINICAL DECISIONS SHOULD BE BASED ON THE PRIMARY CLINICAL RECORDS. [employer] provides no warranty or guarantee of the accuracy or completeness of information in this document.
[2023-05-24 12:46] LABS: Absolute Lymphocyte Count 1.94 X10^3/uL (0.83-4.51); Absolute Neutrophil Count 2.1 X10^3/uL (2.0-7.7); Basophil# 0.02 X10^3/uL; Basophil% 0.4 % (0-1); Eosinophil# 0.08 X10^3/uL; Eosinophils% 1.8 % (0-5); Hematocrit 44.2 % (37-47); Hemoglobin 14.7 g/dL (12.0-15.0); Lymphocyte # 1.94 X10^3/ul (0.83-4.51); Lymphocyte % 43.2 % (19-41); Mean Corp Hgb Conc 33.3 g/dL (32-36); Mean Corpuscular Hgb 30.3 pg (27.0-32.0); Mean Corpuscular Volume 91.1 fL (81-99); Mean Platelet Vol. 10.1 fl (6.2-12.0); Monocyte# 0.39 X10^3/uL; Monocyte% 8.7 % (0-10); NRBC Flagged by Analyzer 0 % (0-5); Neutrophil # 2.05 X10^3/uL (2.7-7.7); Neutrophil % 45.7 % (47-70); Platelet Count 253 K/mm3 (150-450); RBC Distribution Width CV 13.2 % (11.6-14.6); RBC Distribution Width SD 44.7 fl (35.1-43.9); Red Blood Count 4.85 M/mm3 (4.2-5.4); White Blood Count 4.5 K/mm3 (4.4-11.0)
[2023-05-24 12:48] LABS: Erythrocyte Sedimentation Rate 24 mm/hr (0-30)
[2023-05-24 13:40] LABS: AST(SGOT) 16 U/L (15-37); Alanine Aminotransfer ALT/SGPT 29 U/L (13-56); Albumin, Serum 4.2 g/dL (3.2-5.0); Alkaline Phosphatase 87 U/L (45-117); Anion Gap 7 (5-15); BUN 12 mg/dL (7-18); BUN/Creat Ratio 13.8 RATIO (10-20); CRP < 2.90 mg/L (0.0-3.0); Calcium,Total 9.4 mg/dL (8.5-10.1); Chloride 105 mmol/L (98-107); Creatinine, Serum 0.87 mg/dL (0.55-1.02); EST Glomerular Filtration Rate 73 mL/min (>60); Est Glom Filt Rate - Afr Amer 89 mL/min (>60); Glucose 79 mg/dL (74-106); Potassium 4.3 mmol/L (3.5-5.1); Protein, Total 8.2 g/dL (6.4-8.2); Rheumatoid Factor < 10.0 IU/mL (<15); Sodium Level 135 mmol/L (136-145)
[2023-05-24 13:50] LABS: Hepatitis B Surface Antigen Non-Reactive (Nonreactive); Hepatitis C Antibody Non-Reactive (Nonreactive)
[2023-05-24 14:52] LABS: Hepatitis B Surface Antibody Reactive
[2023-05-26 16:09] LABS: CCP IgG Antibodies 7 units (0-19); G6PD Quant Test 248 (127-427); Red Blood Cell Count Test/G6PD 4.79 x10E6/uL (3.77-5.28)
== END | disposition home or self-care (01) ==
LOC: MTLAB 11:12
PROVIDERS: PCP Internal Medicine; Referring Provider Internal Medicine Rheumatology; Visit Provider Internal Medicine Rheumatology
DX: M79.7 Fibromyalgia (principal); D35.2 Benign neoplasm of pituitary gland; M18.0 Bilateral primary osteoarthritis of first carpometacarpal joints; R76.8 Other specified abnormal immunological findings in serum; E03.9 Hypothyroidism, unspecified; F41.8 Other specified anxiety disorders; M21.42 Flat foot [pes planus] (acquired), left foot; M21.41 Flat foot [pes planus] (acquired), right foot; Z79.899 Other long term (current) drug therapy
CPT/HCPCS: 36415; 80053; 82955; 85025; 85652; 86140; 86200; 86431; 86704; 86706; 86803; 87340